=== PATIENT | male | born 1965 | race Caucasian/White ===

== ENCOUNTER 2018-01-26 06:08 | Inpatient (IN) | payer OTHER ==
[2018-01-22 15:39] VITALS: BMI 26.3
[2018-01-26] MEDS ORDERED: ACETAMINOPHEN INJECTION 100 ML IVPB ONE (06:57)
[2018-01-26] MEDS ORDERED: LIDOCAINE HCL/PF 2% SDV 5ML VIAL ONE (07:00)
[2018-01-26] MEDS ORDERED: VANCOMYCIN 1,000 MG VIAL (RESTRICTED TO ID ONLY) ONE (07:00)
[2018-01-26] MEDS ORDERED: PROPOFOL 20 ML ONE ×9 (07:00→09:53)
[2018-01-26] MEDS ORDERED: ONDANSETRON 4 MG/2 ML VIAL ONE ×3 (07:00→13:40)
[2018-01-26] MEDS ORDERED: CLINDAMYCIN PHOSPHATE 600 MG/4 ML VIAL ONE (07:00)
[2018-01-26] MEDS ORDERED: fentaNYL CITRATE 250 MCG/5 ML VIAL ONE (07:00)
[2018-01-26] MEDS ORDERED: SUCCINYLCHOLINE CHLORIDE 200 MG/10 ML VIAL ONE (07:01)
[2018-01-26] MEDS ORDERED: MIDAZOLAM HCL 2 MG/2 ML SINGLE DOSE VIAL ONE ×2 (07:01)
[2018-01-26] MEDS ORDERED: SEVOFLURANE 250 ML BTL ONE (07:19)
[2018-01-26] MEDS ORDERED: DESFLURANE GAS 240 ML BOTTLE IH ONE (07:19)
[2018-01-26] MEDS ORDERED: ALBUTEROL SO4 8 GM HFA INHALER IH ONE (07:55)
[2018-01-26] MEDS ORDERED: THROMBIN (BOVINE) 5,000 UNIT VIAL TP ONE ×2 (08:15→08:50)
[2018-01-26] MEDS ORDERED: HEPARIN NA (PORCINE) 5,000 UNITS/ML 1ML VIAL ONE (08:35)
[2018-01-26] MEDS ORDERED: CLINDAMYCIN 900 MG PREMIX BAG IVPB ONE (08:57)
[2018-01-26] MEDS ORDERED: VANCOMYCIN 1,000 MG VIAL (RESTRICTED TO ID ONLY) IVPB ONE (09:04)
[2018-01-26] MEDS ORDERED: oxyCODONE HCL 5 MG TABLET PO PRN ×3 (12:01→19:42)
[2018-01-26] MEDS ORDERED: ONDANSETRON 4 MG/2 ML VIAL IVPUSH PRN ×2 (12:01→12:15)
[2018-01-26] MEDS ORDERED: traMADol HCL 50 MG TABLET PO PRN (12:01)
--- NOTE | 2018-01-26 12:11 | PN ---
Progress Note (short form) - Note Progress Note: 52M s/p C3-C4, C4-C5 discectomies; C4 corpectomies; C3, C5 partial corpectomies ; C3-C5 anterior cervical decompression anterior column cage reconstruction with instrumented fusion POD #0. -Admit to ICU x 24 hrs. for airway observation; OK to downgrade to floor or discharge home 01/26/2018 if airway stable and discharge criteria met. -Maintain head of bed 60 degrees. -Pain medication: oral only; No NSAID's. -DVT PPx: -Mechanical only: JEROME's, SCD's. -Post-op Ancef x 2 doses. -f/u AM labs. -Incentive spirometry. -PT/OT/Rehab, OOB. -WBAT B/L LE; PWB B/L UE nothing heavier than the weight of his cell phone. -d/c Singh catheter at midnight; f/u TOV. -Keep dressing clean & dry. -No heavy lifting, bending or twisting. -Advance diet as tolerated. -B/L UE & LE NV checks. -Care per ICU & primary medical hospitalist teams. -Discharge planning: f/u [facility] [place] office Friday02/06/2018; call for appointment; . Hammad Joshua MD (Orthopaedic Surgery).
[2018-01-26] MEDS ORDERED: ALBUTEROL SO4 8 GM HFA INHALER IH PRN (12:12)
[2018-01-26] MEDS ORDERED: ALBUTEROL SO4 0.083% IH SOL 2.5 MG/3 ML VIAL.NEB. NEB PRN (12:12)
[2018-01-26] MEDS ORDERED: ceFAZolin 2 GRAM PREMIX BAG IVPB SCH (12:15)
[2018-01-26] MEDS ORDERED: PROMETHAZINE HCL 25 MG/1 ML VIAL IVPUSH PRN (12:15)
--- NOTE | 2018-01-26 12:17 | OP ---
Operative Note - Note: Operative Date: 01/26/18 Pre-Operative Diagnosis: Cervical spinal stenosis. Cervical myelopathy Operation: 1. C3-C4, C4-C5 discectomies. 2. C4 corpectomies. 3. C3, C5 partial corpectomies. 4. C3-C5 anterior column cage reconstruction. 5. C3-C5 anterior instrumented fusion. 6. Bone autograft. 7. Bone allograft Post-Operative Diagnosis: Same as Pre-op Surgeon: Familia Joshua Investigator Narcotics: Hammad Joshua Anesthesiologist/MEDICARE COMPLIANCE AUDITOR: Eliazar Burroughs Anesthesia: General Specimens Removed: C3-C4, C4-C5 discs Estimated Blood Loss (mls): 50 Fluid Volume Replaced (mls): 2,400 Operative Report Dictated: Yes
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
[2018-01-26] MEDS: traMADol HCL 50 MG TABLET PO PRN ×2 (16:26→22:23)
[2018-01-26] MEDS: CLINDAMYCIN 600MG PREMIX IVPB 600 MG/50 ML BAG IVPB SCH ×2 (16:27→21:50)
[2018-01-26] MEDS: LACTATED RINGERS SOLUTION 1,000 ML IV SCH (16:35)
[2018-01-26] MEDS ORDERED: METOPROLOL TARTRATE 5 MG/5 ML VIAL IVPUSH ONE (18:17)
[2018-01-26] MEDS ORDERED: METOPROLOL TARTRATE 5 MG/5 ML VIAL ONE (18:32)
[2018-01-26] MEDS: ACETAMINOPHEN 325 MG TABLET (FP) PO SCH ×2 (18:35→21:45)
--- NOTE | 2018-01-26 18:50 | PN ---
Physical Exam: SUBJECTIVE: Patient seen and examined at bedside in the ICU No acute events POD #0 s/p 1. C3-C4, C4-C5 discectomies. 2. C4 corpectomies. 3. C3, C5 partial corpectomies. 4. C3-C5 anterior column cage reconstruction. 5. C3-C5 anterior instrumented fusion. 6. Bone autograft. 7. Bone allograft minimal pain at incisiojn site no voice changes OBJECTIVE: Vital Signs Period Temp Pulse Resp BP Sys/Nettles Pulse Ox Last 24 Hr 97.8 F-99.2 F 75-97 14-18 121-160/73-108 96-100 GENERAL: The patient is awake, alert, and fully oriented, in no acute distress. HEAD: Normal with no signs of trauma. EYES: PERRL, extraocular movements intact, sclera anicteric, conjunctiva clear. No ptosis. ENT: moist mucous membranes. NECK: Trachea midline, full range of motion, supple. incision C/D/I. no hoarseness. LUNGS: Breath sounds equal, clear to auscultation bilaterally, no wheezes, no crackles, no accessory muscle use. HEART: Regular rate and rhythm, S1, S2 without murmur, rub or gallop. ABDOMEN: Soft, nontender, nondistended, normoactive bowel sounds, no guarding, no rebound, no hepatosplenomegaly, no masses. EXTREMITIES: warm, well-perfused, no edema. NEUROLOGICAL: Cranial nerves II through XII grossly intact. sensation intact in all extremities. global muscle strength 5/5 PSYCH: Normal mood, normal affect. SKIN: Warm, dry, normal turgor, no rashes or lesions noted Laboratory Results - last 24 hr 01/26/18 01/26/18 06:34 07:38 Blood Type A POSITIVE A POSITIVE Antibody Screen Negative Active Medications Generic Name Dose Route Start Last Admin Trade Name Freq PRN Reason Stop Dose Admin Acetaminophen 650 mg 01/26/18 12:15 01/26/18 18:35 Tylenol - PO 650 mg Q6HPO KEN Administration Albuterol Sulfate 1 amp 01/26/18 12:12 Ventolin 0.083% Nebulizer Soln - NEB Q8H PRN ASTHMA Albuterol Sulfate 0 puff 01/26/18 12:12 Ventolin Hfa Inhaler - IH Q4H PRN ASTHMA Budesonide/Formoterol Fumarate 2 puff 01/26/18 22:00 Symbicort 80/4.5mcg - IH BID KEN Chlorhexidine Gluconate 1 applic 01/26/18 22:00 Hibiclens For Decolonization - TP HS KEN Clonazepam 0.5 mg 01/26/18 22:00 Klonopin - PO HS PRN ANXIETY Fluticasone Propionate 1 spray 01/27/18 10:00 Flonase - NS DAILY [facility] Hydrochlorothiazide 12.5 mg 01/26/18 22:00 Hctz - PO BID KEN Lactated Ringer's 1,000 mls @ 100 mls/hr 01/26/18 13:45 01/26/18 16:35 Lactated Ringers Solution IV 100 mls/hr ASDIR KEN Administration Clindamycin Phosphate 600 mg in 50 mls @ 50 mls/hr 01/26/18 15:00 01/26/18 16 :27 Cleocin 600 Mg Premix Ivpb - IVPB 01/27/18 03:59 50 mls/hr Q6H-IV KEN Administration Montelukast Sodium 5 mg 01/27/18 10:00 Singulair - PO DAILY [facility] Mupirocin 1 applic 01/26/18 22:00 Bactroban Ointment (For Decolonization) - NS 01/31/18 21:59 BID [facility] Ondansetron HCl 4 mg 01/26/18 12:01 01/26/18 13:45 Zofran Injection IVPUSH 4 mg Q6H PRN Administration NAUSEA AND/OR VOMITING Ondansetron HCl 4 mg 01/26/18 12:15 Zofran Injection IVPUSH 01/27/18 12:14 Q6H PRN NAUSEA AND/OR VOMITING Pantoprazole Sodium 40 mg 01/27/18 10:00 Protonix - PO DAILY [facility] Promethazine HCl 12.5 mg 01/26/18 12:15 Phenergan Injection - IVPUSH 01/27/18 12:14 Q6H PRN NAUSEA-FOR RESCUE AFTER 15 MIN Tramadol HCl 50 mg 01/26/18 12:01 Ultram - PO Q6H PRN PAIN LEVEL 1-5 Tramadol HCl 100 mg 01/26/18 16:06 01/26/18 16:26 Ultram - PO 100 mg Q6H PRN Administration PAIN LEVEL 6-10 Valsartan 160 mg 01/26/18 22:00 Diovan - PO BID KEN ASSESSMENT/PLAN: 52m pmh of HTN HLD Asthma anxiety psoriatic arthtitis, and cervical spinal stenosis/cervical myelopathy, presents to the ICU POD #0 s/p 1. C3-C4, C4-C5 discectomies. 2. C4 corpectomies. 3. C3, C5 partial corpectomies. 4. C3-C5 anterior column cage reconstruction. 5. C3-C5 anterior instrumented fusion. 6. Bone autograft. 7. Bone allograft Cervical stenosis/Cervical myelopathy POD #0 s/p1. C3-C4, C4-C5 discectomies. 2. C4 corpectomies. 3. C3, C5 partial corpectomies. 4. C3-C5 anterior column cage reconstruction. 5. C3-C5 anterior instrumented fusion. 6. Bone autograft. 7. Bone allograft Pain control ICU care PT/OT monitor neck for hematoma and voice changes-instructions ordered in [employer] periop ABx per surgery team HTN: uncontrolled at this time BP 150/103 Given 5mg IV lopressor by ICU team Due for his meds tonight continue valsartan 160/HCTZ 12.5 he will be changed by his doctor to new BP med but did not start it yet per PT he doesn't know which med-changed because of valsartan recall Can give a dose of norvasc 5mg if hypertensive between now and 10pm when meds are due Asthma: Not currently active bronchodilators PRN O2 PRN Symbicort Congulair Anxiety: Klonopin 0.5mg HS PRN Anxiety HLD: Continue Statin GERD: Protonix Psoratic arthritis FEN: LR @ 100ml/hr get BNP in AM CLD PPx: SCDs PPI PT consult Case discussed with Dr. Suh Visit type - Emergency Visit Emergency Visit: Yes ED Registration Date: 01/26/18 Care time: The patient presented to the Emergency Department on the above date and was hospitalized for further evaluation of their emergent condition. - New Patient This patient is new to me today: Yes Date on this admission: 01/26/18 - Critical Care Critical Care patient: Yes Total Critical Care Time (in minutes): 45 Critical Care Statement: The care of this patient involved high complexity decision making to prevent further life threatening deterioration of the patient 's condition and/or to evaluate & treat vital organ system(s) failure or risk of failure.
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
[2018-01-26] MEDS: MUPIROCIN 2% TOPICAL OINTMENT FOR DECOLONIZATION NS SCH (21:50)
[2018-01-26] MEDS: HYDROCHLOROTHIAZIDE 12.5 MG CAPSULE (FP) PO SCH (21:51)
[2018-01-26] MEDS: VALSARTAN 160 MG TABLET (UD) PO SCH (21:51)
[2018-01-26] MEDS: BUDESONIDE/FORMETEROL FUMARATE 80/4.5 mcg INHALER IH SCH (21:59)
[2018-01-26] MEDS ORDERED: PATIENT'S OWN MEDICATION (NON-FORMULARY) (Valsartan/Hydrochlorothiazide [Valsartan-Hctz 16 PO SCH (22:00)
[2018-01-26] MEDS ORDERED: CHLORHEXIDINE GLUCONATE 4% CLEANSER FOR DECOLONIZATION TP SCH (22:00)
[2018-01-26] MEDS ORDERED: clonazePAM 0.5 MG TABLET PO PRN (22:00)
[2018-01-26] MEDS ORDERED: PATIENT'S OWN MEDICATION (NON-FORMULARY) (Simvastatin 10 MG) PO SCH (22:00)
[2018-01-26] MEDS ORDERED: ATORVASTATIN CA 10 MG TABLET (FP) PO SCH (22:00)
[2018-01-27] MEDS: ACETAMINOPHEN 325 MG TABLET (FP) PO SCH ×4 (00:12→19:52)
[2018-01-27] MEDS: diphenhydrAMINE HCL 25 MG CAPSULE (FP) PO PRN ×3 (00:13→14:10)
[2018-01-27] MEDS ORDERED: BENZOCAINE/MENTH/CETYLPYRD CL 1 EACH LOZENGE MM PRN ×2 (00:21→13:31)
[2018-01-27] MEDS: CLINDAMYCIN 600MG PREMIX IVPB 600 MG/50 ML BAG IVPB SCH (02:10)
[2018-01-27 06:18] LABS: HEMATOCRIT 31.5 % (35.4-49); HEMOGLOBIN 10.9 GM/dL (11.7-16.9); MCH 34.6 pg (25.7-33.7); MCHC 34.5 g/dl (32.0-35.9); MEAN CELL VOLUME 100.4 fl (80-96); MEAN PLT VOLUME 8.7 fl (7.5-11.1); PLATELET COUNT 158 K/MM3 (134-434); RBC 3.13 M/mm3 (4.00-5.60); RDW 12.6 % (11.9-15.9); WHITE BLOOD COUNT 7.5 K/mm3 (4.0-10.0)
[2018-01-27 06:34] LABS: ANION GAP 6 MMOL/L (8-16); BLOOD UREA NITROGEN 21 mg/dL (7-18); CHLORIDE 102 mmol/L (98-107); CO2 28 mmol/L (21-32); CREATININE 1.2 mg/dL (0.55-1.3); GLUCOSE,RANDOM 86 mg/dL (74-106); MAGNESIUM 1.6 mg/dL (1.8-2.4); PHOSPHOROUS 4.1 mg/dL (2.5-4.9); POTASSIUM 4.1 mmol/L (3.5-5.1); SODIUM 136 mmol/L (136-145)
[2018-01-27] MEDS ORDERED: MAGNESIUM SULF 50% (8.12 MEQ/2 ML-1 GM VIAL) IVPB ONE (07:35)
[2018-01-27] MEDS ORDERED: oxyCODONE HCL 5 MG TABLET PO PRN ×2 (07:39→13:31)
[2018-01-27] MEDS ORDERED: traMADol HCL 50 MG TABLET PO PRN (07:39)
--- NOTE | 2018-01-27 09:20 | OP ---
DATE OF OPERATION: 01/26/2018 SURGEON: Familia Joshua MD FRONT DESK AUXILIARY: Hammad Joshua MD PREOPERATIVE DIAGNOSIS: 1. 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 2. Collapse of C4 with associated kyphosis. POSTOPERATIVE DIAGNOSIS: 1. 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 2. Collapse of C4 with associated kyphosis. OPERATION PERFORMED: 1. Corpectomy C4. 2. Partial lobectomy C3 and C5. 3. Discectomy C3-C4 and C4-C5. 4. Insertion of cage C3 to C7 (Cushing Precision Spine). 5. Anterior plating. 6. Use of biplanar fluoroscopy and intraoperative neuromonitoring. 7. Use of autologous bone graft harvested from the vertebral body of C4. ANESTHESIA: General. ANTIBIOTICS GIVEN: Vancomycin 1 g, clindamycin 900 mg, Decadron 10 mg given as well. Neuromonitoring applied. OPERATION IN DETAIL: Patient was correctly identified, brought into the operating room. Cervical spine was prepped and window draped with Betadine scrub solution , wiped with alcohol, DuraPrep applied. Time-out was called. Imaging was available for intraoperative evaluation. Neuromonitoring was utilized prior to positioning of the head and neck as baseline studies were performed. Then, placing the bolsters behind the scapula, extending the neck, there was no change in neuromonitoring numbers. An oblique incision was made just above the cricothyroid interval. The dissection was taken through skin and subcutaneous tissues to the the platysma. Two large components of the anterior jugular veins were ligated using 2-0 Vicryl. The plane between the viscera and vessels were entered. This proved to be slightly difficult. The plane enabled with digital palpation easy access to the anterior vertebral bodies. Retractors were placed, and a marker pen inserted into the C4 -C5 disc. This was really noted on the fluoroscopic x-ray. Once we were sure of our levels, the longus colli using unipolar Bovie was gently lifted off the bone from C3 to C5 by lifting right inside the teeth, the medial and lateral retractors were placed in the longus colli keeping the retractors out of harms way. The discs and vertebral bodies were clearly seen visually under light microscope. [place] pins were placed into C3 and into C5. X-rays were taken, which showed excellent seating of the positioning of the [place] pins. Once this had been performed, light microscope was introduced using a Matchstick Midas Jeremy bur. The lateral columns, the gutters were cut into the vertebral bodies almost down to the posterior end-plate, and then, the central portion of the vertebral bodies were harvested. In harvesting this with the [place] rongeur, it was clearly apparent that the bone was diseased with big, empty holes in the bone, and no true tissue noted, an unusual finding which was appreciated preoperatively on the MRI. Hence, the decision to go ahead with the corpectomy, which was the right decision. The entire vertebral body was resected. We used No. 1 and 2 Kerrisons to clear away the posterior bone and longitudinal ligament. The theca was exposed completely. This was a wide decompression appropriately. The inferior end-plates of C3 and the posterior end-plates of C5 were properly prepared. These were cut to be parallel to each other down to healthy bleeding bone. A Cushing Cage measuring size 24 mm was then inserted. This was premeasured with a caliper and slight distraction had been performed. The cage filled with autologous bone as well as bone marrow, bone putty BMP type material enabled seating of the cage, and then, removing the distraction device, the ligamentous axis collapsed the 2 bony ends seen at the inferior end-plate of C3 and the superior end-plate of C5 to be compressed appropriately. A size 29-mm Simplicity Plate was applied, four 12-mm screws, these were self-tapping screws, inserted in the bone beds, solid fixation achieved. Verification of the plate, cage, and screws from AP and lateral fluoroscopic x- ray revealed excellent positioning. Locking device was then applied. Overall comment after thorough lavage of the tissues with saline, this procedure went well with complete hemostasis achieved on the table. Closure, platysma 2-0 Vicryl, subcutaneous 2-0 Vicryl, skin 3-0 Monocryl, Steri-Strips. No drainage was noted. MD JENA Francois/[id number] MTDD
[2018-01-27] MEDS: VALSARTAN 160 MG TABLET (UD) PO SCH ×2 (09:47→22:31)
[2018-01-27] MEDS: BUDESONIDE/FORMETEROL FUMARATE 80/4.5 mcg INHALER IH SCH ×2 (09:48→22:32)
[2018-01-27] MEDS: HYDROCHLOROTHIAZIDE 12.5 MG CAPSULE (FP) PO SCH ×2 (09:48→22:31)
[2018-01-27] MEDS: MUPIROCIN 2% TOPICAL OINTMENT FOR DECOLONIZATION NS SCH (09:50)
[2018-01-27] MEDS ORDERED: FLUTICASONE PROP 0.05% 16 GM NASAL SPRAY NS SCH (10:00)
[2018-01-27] MEDS ORDERED: PANTOPRAZOLE 40 MG TABLET (FP) PO SCH (10:00)
[2018-01-27] MEDS ORDERED: MONTELUKAST NA 5 MG TAB.CHEW PO SCH (10:00)
--- NOTE | 2018-01-27 10:50 | PN ---
Progress Note, Physician Chief Complaint: s/p ACDF under general anesthesia History of Present Illness: post op day one - Current Medication List Current Medications: Active Medications Acetaminophen (Tylenol -) 650 mg PO Q6HPO [facility] Last Admin: 01/27/18 06:34 Dose: 650 mg Albuterol Sulfate (Ventolin 0.083% Nebulizer Soln -) 1 amp NEB Q8H PRN PRN Reason: ASTHMA Albuterol Sulfate (Ventolin Hfa Inhaler -) 2 puff IH Q4H PRN PRN Reason: ASTHMA Atorvastatin Calcium (Lipitor -) 10 mg PO HS [facility] Last Admin: 01/26/18 21:51 Dose: 10 mg Benzocaine/Menthol (Cepacol Lozenge -) 1 each MM PRN PRN PRN Reason: SORE THROAT Last Admin: 01/27/18 06:34 Dose: 1 each Budesonide/Formoterol Fumarate (Symbicort 80/4.5mcg -) 2 puff IH BID [facility] Last Admin: 01/27/18 09:48 Dose: 2 puff Chlorhexidine Gluconate (Hibiclens For Decolonization -) 1 applic TP HS [facility] Last Admin: 01/26/18 21:51 Dose: 1 applic Clonazepam (Klonopin -) 0.5 mg PO HS PRN PRN Reason: ANXIETY Diphenhydramine HCl (Benadryl -) 50 mg PO Q6H PRN PRN Reason: PAIN Last Admin: 01/27/18 08:25 Dose: 50 mg Fluticasone Propionate (Flonase -) 1 spray NS DAILY [facility] Last Admin: 01/27/18 09:51 Dose: 1 spray Hydrochlorothiazide (Hctz -) 12.5 mg PO BID [facility] Last Admin: 01/27/18 09:48 Dose: 12.5 mg Lactated Ringer's (Lactated Ringers Solution) 1,000 mls @ 100 mls/hr IV ASDIR [facility] Last Admin: 01/26/18 16:35 Dose: 100 mls/hr Montelukast Sodium (Singulair -) 5 mg PO DAILY [facility] Last Admin: 01/27/18 09:48 Dose: 5 mg Mupirocin (Bactroban Ointment (For Decolonization) -) 1 applic NS BID [facility] Stop: 01/31/18 21:59 Last Admin: 01/27/18 09:50 Dose: 1 applic Ondansetron HCl (Zofran Injection) 4 mg IVPUSH Q6H PRN PRN Reason: NAUSEA AND/OR VOMITING Last Admin: 01/26/18 13:45 Dose: 4 mg Ondansetron HCl (Zofran Injection) 4 mg IVPUSH Q6H PRN PRN Reason: NAUSEA AND/OR VOMITING Stop: 01/27/18 12:14 Oxycodone HCl (Roxicodone -) 10 mg PO Q6H PRN PRN Reason: PAIN LEVEL 7 - 10 Last Admin: 01/27/18 08:24 Dose: 10 mg Pantoprazole Sodium (Protonix -) 40 mg PO DAILY [facility] Last Admin: 01/27/18 09:48 Dose: 40 mg Promethazine HCl (Phenergan Injection -) 12.5 mg IVPUSH Q6H PRN PRN Reason: NAUSEA-FOR RESCUE AFTER 15 MIN Stop: 01/27/18 12:14 Tramadol HCl (Ultram -) 50 mg PO Q6H PRN PRN Reason: PAIN LEVEL 1-5 Tramadol HCl (Ultram -) 100 mg PO Q6H PRN PRN Reason: PAIN LEVEL 4 - 6 Valsartan (Diovan -) 160 mg PO BID [facility] Last Admin: 01/27/18 09:47 Dose: 160 mg - Objective Vital Signs: Vital Signs Temperature 98.3 F 01/27/18 10:03 Pulse Rate 103 H 01/27/18 10:03 Respiratory Rate 18 01/27/18 10:03 Blood Pressure 148/97 01/27/18 10:03 O2 Sat by Pulse Oximetry (%) 100 01/26/18 23:03 Constitutional: Yes: Well Nourished Cardiovascular: Yes: WNL Respiratory: Yes: WNL Gastrointestinal: Yes: WNL Labs: CBC, BMP 01/27/18 05:30 01/27/18 05:30 Assessment/Plan no adverse effect from anesthesia, pain controlled, dept of anesthesia will sign off care at this time
[2018-01-27] MEDS: LACTATED RINGERS SOLUTION 1,000 ML IV SCH (12:32)
--- NOTE | 2018-01-27 12:42 | PN ---
Teaching Attending Note Name of Resident: Yara Mrogan ATTENDING PHYSICIAN STATEMENT I saw and evaluated the patient. I reviewed the resident's note and discussed the case with the resident. I agree with the resident's findings and plan as documented. SUBJECTIVE: Patient seen and examined in the ICU. Awake and alert. Reports post-op related discomfort. No CP or SOB. No acute events overnight. Intake & Output 01/24/18 01/25/18 01/26/18 01/27/18 23:59 23:59 23:59 23:59 Intake Total 3370 2150 Output Total 500 1200 Balance 2870 950 Last Vital Signs Temp Pulse Resp BP Pulse Ox 98.5 F 103 H 18 148/97 100 01/27/18 11:41 01/27/18 10:03 01/27/18 10:03 01/27/18 10:03 01/26/18 23:03 Active Medications Acetaminophen (Tylenol -) 650 mg PO Q6HPO [facility] Last Admin: 01/27/18 12:31 Dose: 650 mg Albuterol Sulfate (Ventolin 0.083% Nebulizer Soln -) 1 amp NEB Q8H PRN PRN Reason: ASTHMA Albuterol Sulfate (Ventolin Hfa Inhaler -) 2 puff IH Q4H PRN PRN Reason: ASTHMA Atorvastatin Calcium (Lipitor -) 10 mg PO HS [facility] Last Admin: 01/26/18 21:51 Dose: 10 mg Benzocaine/Menthol (Cepacol Lozenge -) 1 each MM PRN PRN PRN Reason: SORE THROAT Last Admin: 01/27/18 06:34 Dose: 1 each Budesonide/Formoterol Fumarate (Symbicort 80/4.5mcg -) 2 puff IH BID [facility] Last Admin: 01/27/18 09:48 Dose: 2 puff Chlorhexidine Gluconate (Hibiclens For Decolonization -) 1 applic TP HS [facility] Last Admin: 01/26/18 21:51 Dose: 1 applic Clonazepam (Klonopin -) 0.5 mg PO HS PRN PRN Reason: ANXIETY Diphenhydramine HCl (Benadryl -) 50 mg PO Q6H PRN PRN Reason: PAIN Last Admin: 01/27/18 08:25 Dose: 50 mg Fluticasone Propionate (Flonase -) 1 spray NS DAILY [facility] Last Admin: 10/09/18 09:51 Dose: 1 spray Hydrochlorothiazide (Hctz -) 12.5 mg PO BID [facility] Last Admin: 01/27/18 09:48 Dose: 12.5 mg Lactated Ringer's (Lactated Ringers Solution) 1,000 mls @ 100 mls/hr IV ASDIR [facility] Last Admin: 01/27/18 12:32 Dose: 100 mls/hr Montelukast Sodium (Singulair -) 5 mg PO DAILY [facility] Last Admin: 01/27/18 09:48 Dose: 5 mg Mupirocin (Bactroban Ointment (For Decolonization) -) 1 applic NS BID [facility] Stop: 01/31/18 21:59 Last Admin: 01/27/18 09:50 Dose: 1 applic Ondansetron HCl (Zofran Injection) 4 mg IVPUSH Q6H PRN PRN Reason: NAUSEA AND/OR VOMITING Last Admin: 01/26/18 13:45 Dose: 4 mg Oxycodone HCl (Roxicodone -) 10 mg PO Q6H PRN PRN Reason: PAIN LEVEL 7 - 10 Last Admin: 01/27/18 08:24 Dose: 10 mg Pantoprazole Sodium (Protonix -) 40 mg PO DAILY [facility] Last Admin: 01/27/18 09:48 Dose: 40 mg Tramadol HCl (Ultram -) 50 mg PO Q6H PRN PRN Reason: PAIN LEVEL 1-5 Tramadol HCl (Ultram -) 100 mg PO Q6H PRN PRN Reason: PAIN LEVEL 4 - 6 Valsartan (Diovan -) 160 mg PO BID [facility] Last Admin: 01/27/18 09:47 Dose: 160 mg General: Awake and alert, NAD HEENT: Clean dressing on anterior neck. Neck soft to palpation. Cards: RRR, no murmur appreciated Pulm: Comfortable on room air, clear to auscultation bilaterally Abd: Soft, nontender, nondistended Ext: Atraumatic. No LE edema. ROM intact. Strength 5/5 and equal bilaterally Neuro: A&Ox3, non-focal Psych: Mood appropriate to situation Laboratory Results - last 24 hr 01/27/18 01/27/18 05:30 05:30 WBC 7.5 RBC 3.13 L Hgb 10.9 L Hct 31.5 L MCV 100.4 H MCH 34.6 H MCHC 34.5 RDW 12.6 Plt Count 158 MPV 8.7 Sodium 136 Potassium 4.1 Chloride 102 Carbon Dioxide 28 Anion Gap 6 L BUN 21 H Creatinine 1.2 Creat Clearance w eGFR > 60 Random Glucose 86 Calcium 8.0 L Phosphorus 4.1 Magnesium 1.6 L ASSESSMENT/PLAN: POD #1: C3-C4, C4-C5 discectomies, C4 corpectomies, C3, C5 partial corpectomies , C3-C5 anterior column cage reconstruction, C3-C5 anterior instrumented fusion , bone autograft Asthma: stable GERD Psoriatic Arthritis OOB to chair / ambulate Incentive Spirometry PO as tolerated Neuro checks VTE prophylaxis Dr Barfield
[2018-01-27] MEDS ORDERED: clonazePAM 0.5 MG TABLET PO PRN (13:31)
[2018-01-27] MEDS ORDERED: ONDANSETRON 4 MG/2 ML VIAL IVPUSH PRN (13:31)
[2018-01-27] MEDS ORDERED: ALBUTEROL SO4 8 GM HFA INHALER IH PRN (13:31)
--- NOTE | 2018-01-27 17:06 | PN ---
Physical Exam: SUBJECTIVE: Patient seen and examined. He complains of neck discomfort and hoarseness. He denies SOB, stridor, difficulty swallowing. OBJECTIVE: Vital Signs Period Temp Pulse Resp BP Sys/Nettles Pulse Ox Last 24 Hr 98.1 F-99.4 F 73-103 13-21 127-161/89-103 100 GENERAL: The patient is awake, alert, and fully oriented, in no acute distress. Neck: Clean, dry dressing on anterior neck. LUNGS: Breath sounds equal, clear to auscultation bilaterally, no wheezes, no crackles, no accessory muscle use. HEART: Regular rate and rhythm, S1, S2 without murmur, rub or gallop. ABDOMEN: Soft, nontender, nondistended, normoactive bowel sounds, no guarding, no rebound, no hepatosplenomegaly, no masses. EXTREMITIES: 2+ pulses, warm, well-perfused, no edema. Laboratory Results - last 24 hr 01/27/18 01/27/18 05:30 05:30 WBC 7.5 RBC 3.13 L Hgb 10.9 L Hct 31.5 L MCV 100.4 H MCH 34.6 H MCHC 34.5 RDW 12.6 Plt Count 158 MPV 8.7 Sodium 136 Potassium 4.1 Chloride 102 Carbon Dioxide 28 Anion Gap 6 L BUN 21 H Creatinine 1.2 Creat Clearance w eGFR > 60 Random Glucose 86 Calcium 8.0 L Phosphorus 4.1 Magnesium 1.6 L Active Medications Generic Name Dose Route Start Last Admin Trade Name Freq PRN Reason Stop Dose Admin Acetaminophen 650 mg 01/27/18 18:00 Tylenol - PO Q6HPO KEN Albuterol Sulfate 1 amp 01/27/18 13:31 Ventolin 0.083% Nebulizer Soln - NEB Q8H PRN ASTHMA Albuterol Sulfate 2 puff 01/27/18 13:31 Ventolin Hfa Inhaler - IH Q4H PRN ASTHMA Atorvastatin Calcium 10 mg 01/27/18 22:00 Lipitor - PO HS KEN Benzocaine/Menthol 1 each 01/27/18 13:31 Cepacol Lozenge - MM PRN PRN SORE THROAT Budesonide/Formoterol Fumarate 2 puff 01/27/18 22:00 Symbicort 80/4.5mcg - IH BID [facility] Clonazepam 0.5 mg 01/27/18 13:31 Klonopin - PO HS PRN ANXIETY Diphenhydramine HCl 50 mg 01/27/18 13:31 01/27/18 14:10 Benadryl - PO 50 mg Q6H PRN Administration FOR ITCHING Fluticasone Propionate 1 spray 01/28/18 10:00 Flonase - NS DAILY [facility] Hydrochlorothiazide 12.5 mg 01/27/18 22:00 Hctz - PO BID [facility] Montelukast Sodium 5 mg 01/28/18 10:00 Singulair - PO DAILY [facility] Ondansetron HCl 4 mg 01/27/18 13:31 Zofran Injection IVPUSH Q6H PRN NAUSEA AND/OR VOMITING Oxycodone HCl 10 mg 01/27/18 13:31 01/27/18 14:08 Roxicodone - PO 10 mg Q6H PRN Administration PAIN LEVEL 7 - 10 Pantoprazole Sodium 40 mg 01/28/18 10:00 Protonix - PO DAILY [facility] Tramadol HCl 50 mg 01/27/18 13:31 Ultram - PO Q6H PRN PAIN LEVEL 1-3 Tramadol HCl 100 mg 01/27/18 13:31 Ultram - PO Q6H PRN PAIN LEVEL 4 - 6 Valsartan 160 mg 01/27/18 22:00 Diovan - PO BID [facility] ASSESSMENT/PLAN: This is a 52 year old man with a history of HTN, hyperlipidemia, asthma, psoriatic arthritis, , anxiety, cervical stenosis with myelopathy who was admitted for C-spine surgery. 1. Cervical stenosis with myelopathy - s/p C3-C4, C4-C5 discectomies; C4 corpectomies; C3, C5 partial corpectomies ; C3-C5 anterior cage reconstruction; C3-C5 anterior instrumented fusion; bone autograft; bone allograft 01/26 - Pain control - Physical therapy 2. HTN - Continue Diovan, HCTZ 3. Hyperlipidemia - Continue Lipitor 4. Asthma - Stable - Continue Symbicort, Singulair 5. Psoriatic arthritis 6. Anxiety - Continue Klonopin
--- NOTE | 2018-01-27 17:54 | PN ---
Physical Exam: SUBJECTIVE: - POD #1 s/p cervical discectomy, corpectomies, anterior fusion - Overnight, rice removed and voiding w/o difficulty - Reports continued sore throat, some pain. No difficulty swallowing, breathing , or voice changes OBJECTIVE: Vital Signs Period Temp Pulse Resp BP Sys/Nettles Pulse Ox Last 24 Hr 98.1 F-99.4 F 73-103 13-21 127-161/89-103 100 General: Comfortable, no acute distress HEENT: PERRL, EOMI, MMM, voice normal. Clean dressing on anterior neck. No strikethrough. No erythema, edema, induration surrounding incision - neck soft to palpation. Cards: RRR, no murmur appreciated Pulm: Comfortable on room air, clear to auscultation bilaterally Abd: Soft, nontender, nondistended Ext: Atraumatic. No LE edema. ROM intact. Strength 5/5 and equal bilaterally Vasc: Extremities WWP Neuro: A&Ox3, CN grossly intact, normal speech, motor/sensory grossly intact and symmetric Psych: Mood appropriate to situation Laboratory Results - last 24 hr 01/27/18 01/27/18 05:30 05:30 WBC 7.5 RBC 3.13 L Hgb 10.9 L Hct 31.5 L MCV 100.4 H MCH 34.6 H MCHC 34.5 RDW 12.6 Plt Count 158 MPV 8.7 Sodium 136 Potassium 4.1 Chloride 102 Carbon Dioxide 28 Anion Gap 6 L BUN 21 H Creatinine 1.2 Creat Clearance w eGFR > 60 Random Glucose 86 Calcium 8.0 L Phosphorus 4.1 Magnesium 1.6 L Active Medications Generic Name Dose Route Start Last Admin Trade Name Freq PRN Reason Stop Dose Admin Acetaminophen 650 mg 01/27/18 18:00 Tylenol - PO Q6HPO KEN Albuterol Sulfate 1 amp 01/27/18 13:31 Ventolin 0.083% Nebulizer Soln - NEB Q8H PRN ASTHMA Albuterol Sulfate 2 puff 01/27/18 13:31 Ventolin Hfa Inhaler - IH Q4H PRN ASTHMA Atorvastatin Calcium 10 mg 01/27/18 22:00 Lipitor - PO HS KEN Benzocaine/Menthol 1 each 01/27/18 13:31 Cepacol Lozenge - MM PRN PRN SORE THROAT Budesonide/Formoterol Fumarate 2 puff 10/09/18 22:00 Symbicort 80/4.5mcg - IH BID [facility] Clonazepam 0.5 mg 01/27/18 13:31 Klonopin - PO HS PRN ANXIETY Diphenhydramine HCl 50 mg 01/27/18 13:31 01/27/18 14:10 Benadryl - PO 50 mg Q6H PRN Administration FOR ITCHING Fluticasone Propionate 1 spray 01/28/18 10:00 Flonase - NS DAILY [facility] Hydrochlorothiazide 12.5 mg 01/27/18 22:00 Hctz - PO BID [facility] Montelukast Sodium 5 mg 01/28/18 10:00 Singulair - PO DAILY [facility] Ondansetron HCl 4 mg 01/27/18 13:31 Zofran Injection IVPUSH Q6H PRN NAUSEA AND/OR VOMITING Oxycodone HCl 10 mg 01/27/18 13:31 01/27/18 14:08 Roxicodone - PO 10 mg Q6H PRN Administration PAIN LEVEL 7 - 10 Pantoprazole Sodium 40 mg 01/28/18 10:00 Protonix - PO DAILY [facility] Tramadol HCl 50 mg 01/27/18 13:31 Ultram - PO Q6H PRN PAIN LEVEL 1-3 Tramadol HCl 100 mg 01/27/18 13:31 Ultram - PO Q6H PRN PAIN LEVEL 4 - 6 Valsartan 160 mg 01/27/18 22:00 Diovan - PO BID [facility] ASSESSMENT/PLAN: Shukri Amezcua is a 52yo man with a PMH of asthma, HTN, HLD, psoriatic arthritis, GERD, cervical spinal stenosis and cervical myelopathy who is POD #1 s/p C3-C4, C4-C5 discectomies, C4 corpectomies, C3, C5 partial corpectomies, C3-C5 anterior column cage reconstruction, C3-C5 anterior instrumented fusion, bone autograft and bone allograft. He was admitted to the ICU postoperatively for airway and neurological monitoring and has been recovering well. Neuro: - Q1hr neurovascular checks overnight - HOB to 60 degrees - Benzocaine lozenge for throat pain - Pain control with scheduled tylenol, tramadol - Oxycodone for severe pain - give with benedryl to prevent reported itching - Clonazepam PRN for anxiety CV: - h/o HTN, HLD - Continue hydrochlorothiazide and valsartan Pulm: - h/o asthma - Continue albuterol, advair, singulair - Encourage OOB, IS 10x per hour Heme: - Postoperative anemia with hgb to 10.9 - Daily CBC GI: - Tolerating diet - Pantoprazole daily - PRN zofran, promethazine Renal: - Voiding without issues ID: - Perioperative antibiotics completed Endo: - No issues Musc: - OOB as tolerated - WBAT BUE and BLE. - Lifting restriction no more than a cell phone - No bending, twisting PPx: - No pharmacologic DVT ppx. JEROME hose in place - Pantoprazole FEN: - Regular diet - SLIV - Replete lytes PRN Dispo: - Transfer to floor - August d/c home when ambulating. Already tolerating diet, voiding spontaneously. Seen and discussed with Dr Carolyne Morgan PGY1 Visit type - Emergency Visit Emergency Visit: No - New Patient This patient is new to me today: No - Critical Care Critical Care patient: Yes Total Critical Care Time (in minutes): 45 Critical Care Statement: The care of this patient involved high complexity decision making to prevent further life threatening deterioration of the patient 's condition and/or to evaluate & treat vital organ system(s) failure or risk of failure.
[2018-01-27] MEDS: traMADol HCL 50 MG TABLET PO PRN (20:36)
[2018-01-27] MEDS: ALBUTEROL SO4 0.083% IH SOL 2.5 MG/3 ML VIAL.NEB. NEB PRN (21:21)
[2018-01-27] MEDS: ATORVASTATIN CA 10 MG TABLET (FP) PO SCH (22:32)
[2018-01-28] MEDS: traMADol HCL 50 MG TABLET PO PRN ×3 (01:38→17:52)
[2018-01-28] MEDS: ACETAMINOPHEN 325 MG TABLET (FP) PO SCH ×5 (07:18→20:01)
[2018-01-28] MEDS: ALBUTEROL SO4 0.083% IH SOL 2.5 MG/3 ML VIAL.NEB. NEB PRN (07:32)
[2018-01-28] MEDS ORDERED: PT OWN MED DRAWER 7, Y5N ONE ×3 (10:47→12:59)
[2018-01-28] MEDS: VALSARTAN 160 MG TABLET (UD) PO SCH ×2 (10:51→21:35)
[2018-01-28] MEDS: HYDROCHLOROTHIAZIDE 12.5 MG CAPSULE (FP) PO SCH ×2 (10:51→21:35)
[2018-01-28] MEDS: PANTOPRAZOLE 40 MG TABLET (FP) PO SCH (10:51)
[2018-01-28] MEDS: MONTELUKAST NA 5 MG TAB.CHEW PO SCH (10:55)
[2018-01-28] MEDS: BUDESONIDE/FORMETEROL FUMARATE 80/4.5 mcg INHALER IH SCH ×2 (10:57→21:43)
--- NOTE | 2018-01-28 11:29 | CONSULT ---
Admitting History and Physical - Primary Care Physician PCP: Familia Joshua - Admission History of Present Illness: 52m pmh of HTN HLD Asthma anxiety psoriatic arthtitis, and cervical spinal stenosis/cervical myelopathy, presents to the ICU POD #0 s/p 1. C3-C4, C4-C5 discectomies. 2. C4 corpectomies. 3. C3, C5 partial corpectomies. 4. C3-C5 anterior column cage reconstruction. 5. C3-C5 anterior instrumented fusion. 6. Bone autograft. 7. Bone allograft Selected Entries 01/26/18 01/26/18 01/26/18 06:58 12:01 14:45 Temperature 98.4 F 99.2 F 98.3 F 01/26/18 01/26/18 01/26/18 15:00 18:00 23:58 Temperature 97.8 F 98.5 F 98.4 F 01/27/18 01/27/18 01/27/18 02:16 10:03 11:41 Temperature 98.1 F 98.3 F 98.5 F 01/27/18 01/27/18 01/27/18 14:00 19:30 20:59 Temperature 99.4 F 101.5 F H 101.3 F H 01/28/18 01/28/18 01:39 06:00 Temperature 99.4 F 100.5 F H Laboratory Tests 01/27/18 05:30 WBC 7.5 History Source: Patient Limitations to Obtaining History: No Limitations - Smoking History Smoking history: Former smoker Have you smoked in the past 12 months: Yes If you are a former smoker, when did you quit?: 1 month ago - Alcohol/Substance Use Hx Alcohol Use: No History - Admission Reason For Visit: CERVICAL DISC DISORDER - General Mental Status: Alert and Oriented, Awake and Alert, Able to Follow Commands Attention: Intact Ability to Follow Directions: Excellent Head/Neck Control: Fair (limited head rotation/flexion. Swelling noted.) - Hearing Hearing: Normal Speech Evaluation - Communication Primary Language: CYMRO Communication: Yes: Within Normal Limits - Speech Production Intelligibility: Yes: WNL - Speech Characteristics Voice Loudness: Mildly Soft/Quiet Voice Pitch: Yes: Normal Voice Phonatory-based Quality: Yes: Dysphonia (mild. No vocal wetness.) Speech Pattern: Normal Speech Clarity: < 100% Rate of Speech: Intact - Language/Auditory Comprehension Follows: Yes: 2 Stage Simple Commands - Language/Verbal Expression Able to Respond to Simple Queries: Yes: WNL Able to Communicate Wants and Needs: Yes: WNL Functional Communication Status: Yes: WNL - Swallow Evaluation/Bedside Assessment Current Nutritional Intake: Regular, Thin Liquids Dentition: Yes: Adequate Facial Symmetry at Rest: Symmetrical Facial Movement: Controlled Against Resistance Opening: Normal Against Resistance Closing: Normal Pucker Lips: Normal Smile: Normal Lingual Movement: Normal, Symmetric Lingual Speed of Movement: Normal Lingual Movement Strgth Against Opposition: Normal Lingual Movement Characteristics: Normal Velopharyngeal Movement: Normal Laryngeal Movement: Reduced Excursion, Labored,delay initiation Bolus Size: Small Labial Seal: WFL Chewing: WFL Oral Prep Time: WFL A-P Transit: WFL Pocketing: None Odynophagia: Pharyngeal Coughing/Throat Clear: No Change in Voice: No Recommendations - Speech Evaluation, Impression/Plan Impression: Pt c/o increased pain/pharyngeal Odynophagia. He reports he can not breathe lying flat. He has troble swallowing pills as it gets stuck, goes up and down, unable to pass. He denies coughing while eating. He is febrile/WBC ok. Assessed with sip of water with immediate eye opening, gasp for air without cough. Bedside evaluation is inconclusive. Sensation is likely reduced, which can result in silent aspiration. Laryngeal swallow seems resticted likely due to swelling. Pt denies pulmonary congestion but laryngeal/pharyngeal tightness, difficulty breathing when on back. - Dysphagia Impressions/Plan Swallowing Skills: Impaired Dysphagia Impressions: Risk of Aspiration (r/o stasis?), Ongoing Evaluation *Silent aspiration: cannot be R/O at bedside Recommendations: Modified Barium Swallow (to visualize swallowing function, r/o stasis/aspiration, determine safest, most liberal diet pt can tolerate.), Other (Consider CXR. Steroids if not medically contraindicated.) - Recommendations Diet Consistency: NPO (suggested until mbs performed)
[2018-01-28] MEDS ORDERED: DEXAMETHASONE SOD PHOSPHATE 10 MG/1 ML VIAL IVPUSH ONE (12:45)
[2018-01-28] MEDS: FLUTICASONE PROP 0.05% 16 GM NASAL SPRAY NS SCH (13:01)
--- NOTE | 2018-01-28 15:55 | PN ---
Progress Note (short form) - Note Progress Note: POD#2 Called to see patient because he has had swelling in his neck since yesterday afternoon and some difficulty swallowing. He said that liquids are easier to swallow than thicker substances such as qpplesauce. He does feel SOB when laying flat. Not having difficulty swallowing his saliva. His pain symptoms have improved in his upper extremities. Vital Signs Period Temp Pulse Resp BP Sys/Nettles Pulse Ox Last 24 Hr 98.6 F-101.5 F 90-98 16-20 134-171/87-103 GEN: A&0x3, NAD Neck: No stridor. Incision c/d/i, dressing changed. No drainage noted. Small blisters to the right of the incision approximately 1x2 cm. Some fullness and tenderness to the right anterior neck. No firm masses. CV: RRR Lungs: CTA b/l Neuro: polysom tech strength equal b/l. Extension/flexion to upper ext 5/5 b/l CBC, BMP 01/27/18 05:30 01/27/18 05:30 CXR: atelectasis at left base Microbiology-urine culture/blood cultures pending A/p: 52 yo male s/p C-3/4 and C4/5 disectomies with anterior fusion mild swelling to right anterior neck Speech and swallow consult completed with modified barium swallow study completed. No aspiration seen and recommending puree diet and thin liquids with chin tuck technique. Spoke with Dr. Joshua and will given decadron x1 IV for swelling and dyphasia. Dressing changed today and applied bacitracin to the blistered areas. Continue oob/ambulate/incentive spirometer Fever workup pending with urine/blood cultures. Encourage incentive spirometer.
[2018-01-28] MEDS: BACITRACIN 15 GM TUBE TOPICAL OINTMENT TP SCH ×2 (17:45→21:43)
--- NOTE | 2018-01-28 19:28 | PN ---
Physical Exam: SUBJECTIVE: Patient seen and examined. Throat feels sore. Can swallow water only. Difficulty swallowing pills. OBJECTIVE: Vital Signs Period Temp Pulse Resp BP Sys/Nettles Pulse Ox Last 24 Hr 97.7 F-101.5 F 82-98 18-20 134-171/87-98 96 General/Neuro: A&Ox3, NAD; ambulating, 5/5 motor and 5/5 sensory all extremites , steady gait HEENT: Neck swollen; voice clear, no hoarseness, no drooling; anterior neck surgical dressing c/d/i Lungs: CTA CV: S1, S2, RRR Ext: 2+ pulses, warm, well-perfused Active Medications Generic Name Dose Route Start Last Admin Trade Name Freq PRN Reason Stop Dose Admin Acetaminophen 650 mg 01/27/18 18:00 01/28/18 17:58 Tylenol - PO Not Given Q6HPO KEN Albuterol Sulfate 1 amp 01/27/18 13:31 01/28/18 07:32 Ventolin 0.083% Nebulizer Soln - NEB 1 amp Q8H PRN Administration ASTHMA Albuterol Sulfate 2 puff 01/27/18 13:31 Ventolin Hfa Inhaler - IH Q4H PRN ASTHMA Atorvastatin Calcium 10 mg 01/27/18 22:00 01/27/18 22:32 Lipitor - PO 10 mg HS KEN Administration Bacitracin 1 applic 01/28/18 16:45 01/28/18 17:45 Bacitracin - TP 1 applic BID KEN Administration Benzocaine/Menthol 1 each 01/27/18 13:31 01/28/18 09:19 Cepacol Lozenge - MM 1 each PRN PRN Administration SORE THROAT Budesonide/Formoterol Fumarate 2 puff 01/27/18 22:00 01/28/18 10:57 Symbicort 80/4.5mcg - IH 2 puff BID KEN Administration Clonazepam 0.5 mg 01/27/18 13:31 01/27/18 22:33 Klonopin - PO 0.5 mg HS PRN Administration ANXIETY Diphenhydramine HCl 50 mg 01/27/18 13:31 01/27/18 14:10 Benadryl - PO 50 mg Q6H PRN Administration FOR ITCHING Fluticasone Propionate 1 spray 01/28/18 10:00 01/28/18 13:01 Flonase - NS 1 spray DAILY KEN Administration Hydrochlorothiazide 12.5 mg 01/27/18 22:00 01/28/18 10:51 Hctz - PO 12.5 mg BID KEN Administration Montelukast Sodium 5 mg 01/28/18 10:00 01/28/18 10:55 Singulair - PO 5 mg DAILY KEN Administration Ondansetron HCl 4 mg 01/27/18 13:31 Zofran Injection IVPUSH Q6H PRN NAUSEA AND/OR VOMITING Oxycodone HCl 10 mg 01/27/18 13:31 01/27/18 14:08 Roxicodone - PO 10 mg Q6H PRN Administration PAIN LEVEL 7 - 10 Pantoprazole Sodium 40 mg 01/28/18 10:00 01/28/18 10:51 Protonix - PO 40 mg DAILY KEN Administration Tramadol HCl 50 mg 01/27/18 13:31 01/28/18 01:38 Ultram - PO 50 mg Q6H PRN Administration PAIN LEVEL 1-3 Tramadol HCl 100 mg 01/27/18 13:31 01/28/18 17:52 Ultram - PO 100 mg Q6H PRN Administration PAIN LEVEL 4 - 6 Valsartan 160 mg 01/27/18 22:00 01/28/18 10:51 Diovan - PO 160 mg BID KEN Administration ASSESSMENT/PLAN This is a 52 year old man with a history of HTN, hyperlipidemia, asthma, psoriatic arthritis, , anxiety, cervical stenosis with myelopathy who was admitted for C-spine surgery. 1. Cervical stenosis with myelopathy - s/p C3-C4, C4-C5 discectomies; C4 corpectomies; C3, C5 partial corpectomies ; C3-C5 anterior cage reconstruction; C3-C5 anterior instrumented fusion; bone autograft; bone allograft 01/26 --POD #2 --pain well-managed with PO meds --complaining of difficulty swallowing; swallow evaluation ordered, NPO in meantime 2. HTN - Continue Diovan, HCTZ 3. Hyperlipidemia - Continue Lipitor 4. Asthma - Stable - Continue Symbicort, Singulair 5. Psoriatic arthritis 6. Anxiety - Continue Klonopin Visit type - Emergency Visit Emergency Visit: Yes ED Registration Date: 01/26/18 Care time: The patient presented to the Emergency Department on the above date and was hospitalized for further evaluation of their emergent condition. - New Patient This patient is new to me today: Yes Date on this admission: 02/05/18 - Critical Care Critical Care patient: No
[2018-01-28] MEDS: ATORVASTATIN CA 10 MG TABLET (FP) PO SCH (21:35)
[2018-01-28] MEDS: diphenhydrAMINE HCL 25 MG CAPSULE (FP) PO PRN (22:50)
[2018-01-29] MEDS: ACETAMINOPHEN 325 MG TABLET (FP) PO SCH ×3 (00:39→13:06)
[2018-01-29] MEDS ORDERED: PT OWN MED DRAWER 7, Y5N ONE (09:35)
[2018-01-29 09:40] VITALS: BP 135/91; PULSE 88; TEMP 98.1
[2018-01-29] MEDS: HYDROCHLOROTHIAZIDE 12.5 MG CAPSULE (FP) PO SCH (09:41)
[2018-01-29] MEDS: VALSARTAN 160 MG TABLET (UD) PO SCH (09:42)
[2018-01-29] MEDS: FLUTICASONE PROP 0.05% 16 GM NASAL SPRAY NS SCH (09:42)
[2018-01-29] MEDS: MONTELUKAST NA 5 MG TAB.CHEW PO SCH (09:42)
[2018-01-29] MEDS: PANTOPRAZOLE 40 MG TABLET (FP) PO SCH (09:42)
[2018-01-29] MEDS: BACITRACIN 15 GM TUBE TOPICAL OINTMENT TP SCH (09:42)
[2018-01-29] MEDS: BUDESONIDE/FORMETEROL FUMARATE 80/4.5 mcg INHALER IH SCH (09:43)
--- NOTE | 2018-01-29 11:40 | PN ---
Physical Exam: SUBJECTIVE: Patient seen and examined. Ambulating around room. Denies cervical pain, states pre-op symtomps of upper extremity parasthesia is gone. Throat is still sore, feels swollen. Able to swallow water, scrambled eggs, and Cream of Wheat. OBJECTIVE: Vital Signs Period Temp Pulse Resp BP Sys/Nettles Pulse Ox Last 24 Hr 97.7 F-99.7 F 82-96 16-20 134-160/91-98 95 General/Neuro: A&Ox3, NAD; ambulating, 5/5 motor and 5/5 sensory all extremites , steady gait HEENT: Neck swollen; voice clear, no hoarseness, no drooling; anterior neck surgical dressing c/d/i Lungs: CTA CV: S1, S2, RRR Ext: 2+ pulses, warm, well-perfused Active Medications Generic Name Dose Route Start Last Admin Trade Name Freq PRN Reason Stop Dose Admin Acetaminophen 650 mg 01/27/18 18:00 01/29/18 05:32 Tylenol - PO 650 mg Q6HPO KEN Administration Albuterol Sulfate 1 amp 01/27/18 13:31 01/28/18 07:32 Ventolin 0.083% Nebulizer Soln - NEB 1 amp Q8H PRN Administration ASTHMA Albuterol Sulfate 2 puff 01/27/18 13:31 Ventolin Hfa Inhaler - IH Q4H PRN ASTHMA Atorvastatin Calcium 10 mg 01/27/18 22:00 01/28/18 21:35 Lipitor - PO 10 mg HS KEN Administration Bacitracin 1 applic 01/28/18 16:45 01/29/18 09:42 Bacitracin - TP 1 applic BID KEN Administration Benzocaine/Menthol 1 each 01/27/18 13:31 01/28/18 09:19 Cepacol Lozenge - MM 1 each PRN PRN Administration SORE THROAT Budesonide/Formoterol Fumarate 2 puff 01/27/18 22:00 01/29/18 09:43 Symbicort 80/4.5mcg - IH 2 puff BID KEN Administration Clonazepam 0.5 mg 01/27/18 13:31 01/27/18 22:33 Klonopin - PO 0.5 mg HS PRN Administration ANXIETY Diphenhydramine HCl 50 mg 01/27/18 13:31 01/28/18 22:50 Benadryl - PO 50 mg Q6H PRN Administration FOR ITCHING Fluticasone Propionate 1 spray 01/28/18 10:00 01/29/18 09:42 Flonase - NS 1 spray DAILY KEN Administration Hydrochlorothiazide 12.5 mg 01/27/18 22:00 01/29/18 09:41 Hctz - PO 12.5 mg BID KEN Administration Montelukast Sodium 5 mg 01/28/18 10:00 01/29/18 09:42 Singulair - PO 5 mg DAILY KEN Administration Ondansetron HCl 4 mg 01/27/18 13:31 Zofran Injection IVPUSH Q6H PRN NAUSEA AND/OR VOMITING Oxycodone HCl 10 mg 01/27/18 13:31 01/27/18 14:08 Roxicodone - PO 10 mg Q6H PRN Administration PAIN LEVEL 7 - 10 Pantoprazole Sodium 40 mg 01/28/18 10:00 01/29/18 09:42 Protonix - PO 40 mg DAILY KEN Administration Tramadol HCl 50 mg 01/27/18 13:31 01/28/18 01:38 Ultram - PO 50 mg Q6H PRN Administration PAIN LEVEL 1-3 Tramadol HCl 100 mg 01/27/18 13:31 01/28/18 17:52 Ultram - PO 100 mg Q6H PRN Administration PAIN LEVEL 4 - 6 Valsartan 160 mg 01/27/18 22:00 01/29/18 09:42 Diovan - PO 160 mg BID KEN Administration ASSESSMENT/PLAN This is a 52 year old man with a history of HTN, hyperlipidemia, asthma, psoriatic arthritis, , anxiety, cervical stenosis with myelopathy who was admitted for C-spine surgery. 1. Cervical stenosis with myelopathy - s/p C3-C4, C4-C5 discectomies; C4 corpectomies; C3, C5 partial corpectomies ; C3-C5 anterior cage reconstruction; C3-C5 anterior instrumented fusion; bone autograft; bone allograft 01/26 --POD #3 --pain well-managed with PO meds --swallow eval done, diet upgraded, tolerated puree,thin liquids, pills 2. HTN - Continued Diovan, HCTZ 3. Hyperlipidemia - Continued Lipitor 4. Asthma - Stable - Continued Symbicort, Singulair 5. Psoriatic arthritis 6. Anxiety - Continued Klonopin
--- NOTE | 2018-01-29 14:39 | PN ---
Progress Note, [employer] - Note Progress Note: Selected Entries 01/28/18 01/28/18 01/28/18 01:39 06:00 10:00 Breakfast Lunch Supper Temperature 99.4 F 100.5 F H 98.2 F 01/28/18 01/28/18 01/28/18 15:23 16:30 18:30 Breakfast 75% Lunch 75% Supper 100% Temperature 98.6 F 97.7 F 01/28/18 01/29/18 01/29/18 20:00 06:00 09:40 Breakfast Lunch Supper Temperature 97.7 F 99.7 F H 98.1 F 01/29/18 12:17 Breakfast 75% Lunch Supper Temperature Laboratory Tests 01/27/18 05:30 WBC 7.5 Pt reports tolerating puree,thin liquids, pills. Pt reports benefitting from chin tuck, effortful swallow, multiple swallow, alternating with liquids. Pt denies coughing or choking. Re-educated pt again on the results of the mbs. Upgrade diet as tolerated, once pt is more confident in his swallowing. Continue Ensure. Follow up with me as out pt, if persistent difficulty is perceived.Prognosis for complete recovery of dysphagia is excellent.
--- NOTE | 2018-01-29 15:37 | DS ---
Physical Exam: SUBJECTIVE: Patient seen and examined. OBJECTIVE: Vital Signs Period Temp Pulse Resp BP Sys/Nettles Pulse Ox Last 24 Hr 97.7 F-99.7 F 82-88 16-20 135-160/91-98 95 PHYSICAL EXAM General/Neuro: A&Ox3, NAD; ambulating, 5/5 motor and 5/5 sensory all extremites , steady gait HEENT: Neck swollen; voice clear, no hoarseness, no drooling; anterior neck surgical dressing c/d/i Lungs: CTA CV: S1, S2, RRR Ext: 2+ pulses, warm, well-perfused LABS CBCD WBC 7.5 K/mm3 (4.0-10.0) 01/27/18 05:30 RBC 3.13 M/mm3 (4.00-5.60) L 01/27/18 05:30 Hgb 10.9 GM/dL (11.7-16.9) L 01/27/18 05:30 Hct 31.5 % (35.4-49) L 01/27/18 05:30 MCV 100.4 fl (80-96) H 01/27/18 05:30 MCHC 34.5 g/dl (32.0-35.9) 01/27/18 05:30 RDW 12.6 % (11.9-15.9) 01/27/18 05:30 Plt Count 158 K/MM3 (134-434) 01/27/18 05:30 MPV 8.7 fl (7.5-11.1) 01/27/18 05:30 CMP Sodium 136 mmol/L (136-145) 01/27/18 05:30 Potassium 4.1 mmol/L (3.5-5.1) 01/27/18 05:30 Chloride 102 mmol/L (98-107) 01/27/18 05:30 Carbon Dioxide 28 mmol/L (21-32) 01/27/18 05:30 Anion Gap 6 MMOL/L (8-16) L 01/27/18 05:30 BUN 21 mg/dL (7-18) H 01/27/18 05:30 Creatinine 1.2 mg/dL (0.55-1.3) 01/27/18 05:30 Creat Clearance w eGFR > 60 (>60) 01/27/18 05:30 Calcium 8.0 mg/dL (8.5-10.1) L 01/27/18 05:30 HOSPITAL COURSE: Date of Admission:01/26/18 Date of Discharge: 01/29/18 This is a 52 year old man with a history of HTN, hyperlipidemia, asthma, psoriatic arthritis, , anxiety, cervical stenosis with myelopathy who was admitted for C-spine surgery. 1. Cervical stenosis with myelopathy - s/p C3-C4, C4-C5 discectomies; C4 corpectomies; C3, C5 partial corpectomies ; C3-C5 anterior cage reconstruction; C3-C5 anterior instrumented fusion; bone autograft; bone allograft 01/26 --POD #3 --pain well-managed with PO meds --swallow eval done, diet upgraded, tolerated puree,thin liquids, pills 2. HTN - Continued Diovan, HCTZ 3. Hyperlipidemia - Continued Lipitor 4. Asthma - Stable - Continued Symbicort, Singulair 5. Psoriatic arthritis 6. Anxiety - Continued Klonopin Minutes to complete discharge: 35 Discharge Summary Reason For Visit: CERVICAL DISC DISORDER Condition: Improved - Instructions Diet, Activity, Other Instructions: You may take tylenol only for pain. Do not take aspirin, motrin, ibuprofen, or any other type of NSAID. You should not lift anything heavier than the weight of your cell phone. No bending. No twisting. Keep your dressing clean and dry. Follow up at [facility] office Friday02/06/2018; call for appointment; . Referrals: Familia Joshua MD [Staff Physician] - Disposition: HOME - Home Medications Comprehensive Discharge Medication List: Ambulatory Orders Albuterol 0.083% Nebulizer Nelda [Ventolin 0.083% Nebulizer Soln -] 1 neb NEB Q8H PRN 01/22/18 Albuterol Sulfate [Proair Hfa] 8.5 gm IH Q4H PRN 01/22/18 Fluticasone Prop 0.05% Nasal [Flonase -] 1 spray NS DAILY 01/22/18 Fluticasone/Salmeterol [Advair 250-50 Diskus] 2 puff PO BID 01/22/18 Montelukast Sodium [Singulair] 5 mg PO DAILY 01/22/18 Pantoprazole Sodium [Protonix] 40 mg PO DAILY 01/22/18 Simvastatin [Zocor -] 10 mg PO HS 01/22/18 Clonazepam 0.5 mg PO DAILY 01/26/18 Irbesartan/Hydrochlorothiazide [Irbesartan-Hctz 300-12.5 mg Tb] 1 each PO DAILY 01/26/18 This patient is new to me today: No Emergency Visit: No Critical Care patient: No - Discharge Referral Referred to [facility] No
--- NOTE | 2018-01-30 14:24 | PATH ---
Surgical Pathology Report Patient Name: JAVON REINOSO [facility]. Rec. #: [id number] /Age/Gender: 1965 (Age: 52) / M Account: [id number] Location: ICU ANIMATION ARTIST Taken: 01/26/2018 Received: 01/26/2018 Reported: 01/27/2018 Physicians: Familia Joshua M.D. Specimen(s) Received C3-4 C4-5 DISC Clinical History Cervical spinal stenosis with myelopathy Final Diagnosis C3-4, C4-5, DISC, DISCECTOMY: FRAGMENTS OF CARTILAGINOUS TISSUE WITH DEGENERATIVE CHANGE. Electronically Signed Phuong Pérez M.D. Gross Description Received in formalin labeled "C3-4, C4-5 disc," is a 2.0 x 1.7 x 0.3 cm aggregate of miller fragments of fibrocartilaginous tissue. The specimen is entirely submitted in one cassette. /01/26/2018 saudi01/26/2018
== END 2018-01-29 15:46 | disposition home or self-care (01) | DRG 472 ==
LOC: JSAMEDAYSX 06:08 → EDSTATUS 08:00 → JICU 15:36 → J8W 01-27 20:54
PROVIDERS: ADMIT Orthopaedic Surgery Orthopaedic Surgery of the Spine; ATTEND Nurse Practitioner Acute Care
PROC: 0RG2070 Fusion of 2 or more Cervical Vertebral Joints with Autologous Tissue Substitute, Anterior Approach, Anterior Column, Open Approach (ICD-10-PCS; 2018-01-26)
PROC: 0RT30ZZ Resection of Cervical Vertebral Disc, Open Approach (ICD-10-PCS; 2018-01-26)
PROC: 0PB30ZZ Excision of Cervical Vertebra, Open Approach (ICD-10-PCS; 2018-01-26)
PROC: 0RG20A0 Fusion of 2 or more Cervical Vertebral Joints with Interbody Fusion Device, Anterior Approach, Anterior Column, Open Approach (ICD-10-PCS; principal; 2018-01-26 08:00)
DX: M50.023 Cervical disc disorder at C6-C7 level with myelopathy (principal); D62 Acute posthemorrhagic anemia; J98.11 Atelectasis; M48.02 Spinal stenosis, cervical region; M40.292 Other kyphosis, cervical region; I10 Essential (primary) hypertension; J45.909 Unspecified asthma, uncomplicated; K21.9 Gastro-esophageal reflux disease without esophagitis; E78.5 Hyperlipidemia, unspecified; L40.50 Arthropathic psoriasis, unspecified; F41.9 Anxiety disorder, unspecified; Z87.891 Personal history of nicotine dependence; R13.13 Dysphagia, pharyngeal phase
CPT/HCPCS: 36415; 71046-TC-FY; 72050-TC-FY; 74230-TC-FY; 80048; 83735; 84100; 85027; 86850; 86900; 86901; 87040; 87086; 88304-TC; 92611-GN; 94640; 94760; 97116-GP; 97161-GP; J0131; J1100; J1644

== ENCOUNTER 2019-03-10 08:40 | Inpatient (IN) | payer OTHER ==
[2019-03-01 11:59] VITALS: BMI 26.2
[2019-03-10] MEDS ORDERED: TRANEXAMIC ACID 1000 MG/10 ML VIAL IVPUSH ONE (09:07)
[2019-03-10] MEDS ORDERED: VANCOMYCIN 1,250 MG in DEXTROSE 5%-WATER - 250 ML IVPB ONE ×2 (09:07→21:00)
[2019-03-10] MEDS ORDERED: BUPIVACAINE LIPOSOME/PF (EXPAREL) 266 MG/20 ML VIAL ONE (09:37)
[2019-03-10] MEDS ORDERED: MIDAZOLAM HCL 2 MG/2 ML SINGLE DOSE VIAL ONE ×6 (09:37→11:43)
[2019-03-10] MEDS ORDERED: SODIUM CHLORIDE 0.9% P/F 10 ML VIAL IJ ONE (09:38)
[2019-03-10] MEDS ORDERED: VANCOMYCIN 1,000 MG VIAL (RESTRICTED TO ID ONLY) ONE (10:19)
[2019-03-10] MEDS ORDERED: DEXMEDETOMIDINE HCL 200 MCG/2 ML IVPB ONE (10:53)
[2019-03-10] MEDS ORDERED: PROPOFOL 20 ML ONE ×3 (10:59→12:05)
[2019-03-10] MEDS ORDERED: SUCCINYLCHOLINE CHLORIDE 200 MG/10 ML SYRINGE ONE (11:00)
--- NOTE | 2019-03-10 13:08 | PN ---
Progress Note (short form) - Note Progress Note: 52M s/p RIGHT total knee replacement POD #0. -Pain control. -DVT PPx: -Chemical: ASA 81mg PO BID x 6 weeks. -Mechanical: JEROME's, SCD's. -Incentive spirometry q15 min. -PT/OT/Rehab, OOB. -WBAT RLE. -Antibiotics: Vancomycin x 1 post op dose. -f/u post-op trial of void (8 hours max). -f/u drain output. -Diet as tolerated. -Keep dressing clean & dry. -Care per medical hospitalist team. -f/u [facility] [place] office Fri03/18/2019; call for appointment; . -Will follow. Familia Joshua MD (Orthopaedic Surgery).
[2019-03-10] MEDS ORDERED: ALBUTEROL SO4 8 GM HFA INHALER IH PRN (13:10)
[2019-03-10] MEDS ORDERED: ALBUTEROL SO4 0.083% IH SOL 2.5 MG/3 ML VIAL.NEB. NEB PRN (13:10)
--- NOTE | 2019-03-10 13:10 | OP ---
Operative Note - Note: Operative Date: 03/10/19 Pre-Operative Diagnosis: Right knee DJD Operation: Right TKA Findings: Synovitis Implants: Pascale Triathlon. Femur - 5. Tibia - 6. Poly - 9mm, PS. Patella - 27mm, symmetric Post-Operative Diagnosis: Same as Pre-op Surgeon: Familia Joshua Delivery Nurse: Hammad Joshua Anesthesiologist/DIRECTOR OF FRONT OFFICE: Jaz Moore Anesthesia: Spinal Specimens Removed: Bone, soft tissue Estimated Blood Loss (mls): 0 Drains & Tubes with Location: 1 x deep HemoVac Fluid Volume Replaced (mls): 1,000 (Crystalloid) Operative Report Dictated: Yes
[2019-03-10] MEDS ORDERED: MAGNESIUM HYDROX 2400MG/30ML ORAL SUSPENSION 30 ML CUP PO PRN (13:13)
[2019-03-10] MEDS ORDERED: ONDANSETRON 4 MG/2 ML VIAL IVPUSH PRN (13:13)
[2019-03-10] MEDS ORDERED: MAG HYDROX/AL HYDROX/SIMETH 30 ML UNIT-DOSE CUP PO PRN (13:13)
[2019-03-10] MEDS ORDERED: GUSELKUMAB SQ SCH (13:15)
[2019-03-10] MEDS ORDERED: LACTATED RINGERS SOLUTION 1,000 ML IV SCH ×2 (13:15→14:15)
--- NOTE | 2019-03-10 14:08 | HP ---
HISTORY OF PRESENT ILLNESS: 53 year-old male with a PMH significant for HTN, HLD, asthma, COPD, GERD, psoriatic arthritis, anxiety, and DJD s/p right total knee arthroplasty earlier today with Dr. Familia Joshua. Recent Travel: No PAST MEDICAL HISTORY: Hypertension Hyperlipidemia COPD Asthma GERD Psoriatic arthritis Degenerative joint disease Anxiety PAST SURGICAL HISTORY: Right knee surgery x 3 Laminectomy Left shoulder arthroscopy Bilateral carpal tunnel release Hemorrhoidectomy Nasal septum surgery C3-C4, C4-C5 discectomies/C4 corpectomies/C3, C5 partial corpectomies/C3-C5 anterior column cage reconstruction/C3-C5 anterior instrumented fusion/Bone autograft Social History: Smoking: current smoker Alcohol: social Drugs: no Family history: father 79 a&w; mother 75 a&w Allergies levofloxacin [From Levaquin] Allergy (Severe, Verified 03/01/19 11:46) Difficulty Breathing Penicillins Allergy (Severe, Verified 03/01/19 11:46) Difficulty Breathing oxycodone Allergy (Mild, Verified 03/01/19 11:46) Itching HOME MEDICATIONS: Home Medications Medication Instructions Recorded Albuterol 0.083% Nebulizer Nelda 1 neb NEB Q8H PRN 01/22/18 [Ventolin 0.083% Nebulizer Soln -] Albuterol Sulfate [Proair Hfa] 8.5 gm IH Q4H PRN 01/22/18 Fluticasone Prop 0.05% Nasal 1 spray NS DAILY 01/22/18 [Flonase -] Fluticasone/Salmeterol [Advair 2 puff PO BID 01/22/18 250-50 Diskus] Montelukast Sodium [Singulair] 5 mg PO DAILY 01/22/18 Pantoprazole Sodium [Protonix] 40 mg PO DAILY 01/22/18 Clonazepam 0.5 mg PO DAILY 01/26/18 Amlodipine Besylate [Norvasc -] 5 mg PO DAILY 03/01/19 Bisoprolol Fumarate 5 mg PO DAILY 03/01/19 Guselkumab [Tremfya] 100 mg SQ ASDIR 03/01/19 Rosuvastatin Calcium [Crestor] 10 mg PO DAILY 03/01/19 REVIEW OF SYSTEMS CONSTITUTIONAL: Absent: fever, chills, diaphoresis, generalized weakness, malaise, loss of appetite, weight change HEENT: Absent: rhinorrhea, nasal congestion, throat pain, throat swelling, difficulty swallowing, mouth swelling, ear pain, eye pain, visual changes CARDIOVASCULAR: Absent: chest pain, syncope, palpitations, irregular heart rate, lightheadedness , peripheral edema RESPIRATORY: Absent: cough, shortness of breath, dyspnea with exertion, orthopnea, wheezing, stridor, hemoptysis GASTROINTESTINAL: Absent: abdominal pain, abdominal distension, nausea, vomiting, diarrhea, constipation, melena, hematochezia GENITOURINARY: Absent: dysuria, frequency, urgency, hesitancy, hematuria, flank pain, genital pain MUSCULOSKELETAL: Absent: myalgia, arthralgia, joint swelling, back pain, neck pain SKIN: Absent: rash, itching, pallor HEMATOLOGIC/IMMUNOLOGIC: Absent: easy bleeding, easy bruising, lymphadenopathy, frequent infections ENDOCRINE: Absent: unexplained weight gain, unexplained weight loss, heat intolerance, cold intolerance NEUROLOGIC: Absent: headache, focal weakness or paresthesias, dizziness, unsteady gait, seizure, mental status changes, bladder or bowel incontinence PSYCHIATRIC: Absent: anxiety, depression, suicidal or homicidal ideation, hallucinations. PHYSICAL EXAMINATION Vital Signs - 24 hr 03/10/19 03/10/19 09:28 13:42 Temperature 98.6 F 97.9 F Pulse Rate 70 65 Respiratory 18 14 Rate Blood Pressure 133/78 137/92 O2 Sat by Pulse 97 Oximetry (%) GENERAL: Sleeping but arousable, follows commands HEAD: Normal with no signs of trauma. LUNGS: Breath sounds equal, clear to auscultation bilaterally. No wheezes, and no crackles. No accessory muscle use. HEART: Regular rate and rhythm, normal S1 and S2 ABDOMEN: Soft, nontender, not distended, normoactive bowel sounds UPPER EXTREMITIES: 2+ pulses, warm, well-perfused. No cyanosis. No clubbing. No peripheral edema. LOWER EXTREMITIES: 2+ pulses, warm, well-perfused. No calf tenderness. No peripheral edema. SCDs, TEDs, ice caridad in place; surgical dressing on RLE c/d/i, Hemovac drain; can slightly move toes on right, not on left NEUROLOGICAL: Cranial nerves II-XII intact. Pre op Hgb 12.5 BUN 25 Cr 1.4 Intra op Vanc x 1g LR 800ccs EBL <100ccs ASSESSMENT/PLAN 53 year-old male with a PMH significant for HTN, HLD, asthma, COPD, GERD, psoriatic arthritis, anxiety, and DJD s/p right total knee arthroplasty earlier today with Dr. Familia Joshua. s/p Right total knee arthroplasty --POD #0 --perioperative antibiotics per surgery --pain management per surgery --ASA 81mg BID --protonix --bowel regimen --incentive spirometry --Hemovac drain, monitor output Hypertension --continue amlodipine, atenolol Hyperlipidemia --continue rosuvastatin Asthma COPD --continue Symbicort, flonase, Singulair GERD --protonix Psoriatic arthritis Anxiety --continue clonazepam FEN Fluids: LR @ 125mL/hr Electrolytes: replete as indicated Nutrition: regular diet DVT prophylaxis: OOB, ambulation, SCDs, TEDs, ASA 81mg BID Physical therapy Dispo: continues to require inpatient care. Full code. Visit type - Emergency Visit Emergency Visit: No - New Patient This patient is new to me today: Yes Date on this admission: 03/10/19 - Critical Care Critical Care patient: No
[2019-03-10] MEDS ORDERED: oxyCODONE HCL 5 MG TABLET PO PRN (14:16)
[2019-03-10] MEDS ORDERED: ACETAMINOPHEN 325 MG TABLET (FP) ONE (14:20)
[2019-03-10] MEDS: ACETAMINOPHEN 325 MG TABLET (FP) PO SCH ×2 (15:40→21:13)
[2019-03-10] MEDS: oxyCODONE HCL 5 MG TABLET PO PRN (17:00)
--- NOTE | 2019-03-10 20:17 | OP ---
DATE OF OPERATION: DATE OF DICTATION: 03/10/2019 SURGEON: Familia Joshua M.D. ULTRASOUND SPECIALIST: Hammad Joshua M.D. PREOPERATIVE DIAGNOSIS: Psoriatic osteoarthritis, right knee. POSTOPERATIVE DIAGNOSIS: Psoriatic osteoarthritis, right knee. OPERATION: Right cemented posterior stabilized total knee arthroplasty (Randolph subvastus approach). ANESTHESIA: Conscious sedation and spinal block with peripheral nerve block. MD JENA Francois/[id number]
[2019-03-10] MEDS ORDERED: diphenhydrAMINE HCL 25 MG CAPSULE (FP) PO PRN (20:21)
[2019-03-10] MEDS: ASPIRIN COATED 81 MG TABLET.EC PO SCH (21:12)
[2019-03-10] MEDS: SENNOSIDES/DOCUSATE COMBO (SENNA PLUS) TABLET (UD) PO SCH (21:14)
[2019-03-10] MEDS: BUDESONIDE/FORMETEROL FUMARATE 80/4.5 mcg INHALER IH SCH (21:37)
[2019-03-10] MEDS ORDERED: oxyCODONE HCL 10 MG SUSTAINED ACTING TABLET PO SCH (22:00)
[2019-03-10] MEDS: KETOROLAC TROMETHAMINE 30 MG/1 ML VIAL IVPUSH PRN (22:10)
[2019-03-11] MEDS: oxyCODONE HCL 5 MG TABLET PO PRN (00:55)
[2019-03-11] MEDS: ACETAMINOPHEN 325 MG TABLET (FP) PO SCH ×4 (02:20→21:04)
[2019-03-11] MEDS: KETOROLAC TROMETHAMINE 30 MG/1 ML VIAL IVPUSH PRN ×3 (04:03→16:00)
--- NOTE | 2019-03-11 07:52 | PN ---
Progress Note (short form) - Note Progress Note: ORTHOPAEDIC SURGERY POD #1 s/p Right total knee arthroplasty No acute events since surgery per RN notes. Was in the chair prior too my arrival this morning. Getting oob to chair with assist. C/o incisional pain. Adequate pain control with medications ordered. Voiding spontaneoulsy. Denies n/v/f/c, CP, palpitations, SOB or QUINN. Last Vital Signs Temp Pulse Resp BP Pulse Ox 98.5 F 79 18 151/95 94 L 03/11/19 06:14 03/11/19 06:14 03/11/19 06:14 03/11/19 06:14 03/11/19 06:14 Hemeovac 03/10/19 03/11/19 03/11/19 22:00 04:08 06:24 Drain 240 240 60 Gen: alert. nad. LE: dressing c/d/i. Drain on suction (sanguinous). SCDs bilat. LE compartments soft, NT bilat. Palpable DP & PT. Dorsi/plantar felxion 5/5 Problem List - Problems (1) Status post total right knee replacement using cement Assessment/Plan: POD #1 s/p Rt TKR GOALS FOR TODAY 1. Pain control 2. DVT PPX --> ASA 81 mg PO BID x 6 weeks; Mechanical via TEDs & SCDs 3. Incentive spirometer 4. OOB with PT 5. WBAT RLE 6. Cont to monitor & record drain output q shift 7. Discharge planning to home 03/12/19 8. Will cont to follow with [facility] Hospitalist through discharge Above plan discussed with Dr. Hammad Joshua and agree Code(s): Z96.651 - PRESENCE OF RIGHT ARTIFICIAL KNEE JOINT (2) Osteoarthritis of right knee Code(s): M17.11 - UNILATERAL PRIMARY OSTEOARTHRITIS, RIGHT KNEE (3) HTN (hypertension) Code(s): I10 - ESSENTIAL (PRIMARY) HYPERTENSION (4) HLD (hyperlipidemia) Code(s): E78.5 - HYPERLIPIDEMIA, UNSPECIFIED (5) COPD (chronic obstructive pulmonary disease) Code(s): J44.9 - CHRONIC OBSTRUCTIVE PULMONARY DISEASE, UNSPECIFIED (6) Anxiety Code(s): F41.9 - ANXIETY DISORDER, UNSPECIFIED
[2019-03-11 08:30] LABS: HEMATOCRIT 30.9 % (35.4-49); HEMOGLOBIN 10.3 GM/dl (11.7-16.9); MCH 36.8 pg (25.7-33.7); MCHC 33.3 g/dl (32.0-35.9); MEAN CELL VOLUME 110.6 fl (80-96); MEAN PLT VOLUME 7.4 fl (7.5-11.1); PLATELET COUNT 180 K/MM3 (134-434); RBC 2.79 M/mm3 (4.00-5.60); RDW 14.2 % (11.9-15.9); WHITE BLOOD COUNT 7.2 K/mm3 (4.0-10.8)
--- NOTE | 2019-03-11 08:38 | PN ---
Physical Exam: SUBJECTIVE: Patient seen and examined at bedside. Pain 10, will give dose of Tylenol. Participated in PT this morning. OBJECTIVE: Vital Signs Period Temp Pulse Resp BP Sys/Nettles Pulse Ox Last 24 Hr 97.4 F-99.1 F 63-82 14-20 104-151/72-95 94-97 GENERAL: A&Ox3 LUNGS: Breath sounds equal, clear to auscultation bilaterally. No wheezes, and no crackles. No accessory muscle use. HEART: Regular rate and rhythm, normal S1 and S2 ABDOMEN: Soft, nontender, not distended, normoactive bowel sounds UPPER EXTREMITIES: 2+ pulses, warm, well-perfused. No cyanosis. No clubbing. No peripheral edema. LOWER EXTREMITIES: 2+ pulses, warm, well-perfused. No calf tenderness. No peripheral edema. SCDs, TEDs, surgical dressing on RLE c/d/i, Hemovac drain Laboratory Results - last 24 hr 03/10/19 03/10/19 03/11/19 10:25 10:25 08:25 WBC 7.2 RBC 2.79 L Hgb 10.3 L Hct 30.9 L MCV 110.6 H MCH 36.8 H MCHC 33.3 RDW 14.2 Plt Count 180 MPV 7.4 L Hep C Ab Diagnostic 0.1 HIV 1&2 Antibody Screen Negative HIV P24 Antigen Negative Active Medications Generic Name Dose Route Start Last Admin Trade Name Freq PRN Reason Stop Dose Admin Acetaminophen 650 mg 03/10/19 15:00 03/11/19 02:20 Tylenol - PO 03/13/19 14:59 650 mg Q6H KEN Administration Al Hydroxide/Mg Hydroxide 30 ml 03/10/19 13:13 Mylanta Oral Suspension - PO Q4H PRN DYSPEPSIA Albuterol Sulfate 1 amp 03/10/19 13:10 Ventolin 0.083% Nebulizer Soln - NEB Q8H PRN ASTHMA Albuterol Sulfate 2 puff 03/10/19 13:10 Ventolin Hfa Inhaler - IH Q4H PRN ASTHMA Amlodipine Besylate 5 mg 03/11/19 10:00 Norvasc - PO DAILY KEN Aspirin 81 mg 03/10/19 22:00 03/10/19 21:12 Ecotrin - PO 81 mg BID KEN Administration Atenolol 50 mg 03/11/19 10:00 Tenormin - PO DAILY KEN Budesonide/Formoterol Fumarate 2 puff 03/10/19 22:00 03/10/19 21:37 Symbicort 80/4.5mcg - IH 2 puff BID KEN Administration Clonazepam 0.5 mg 03/11/19 10:00 Klonopin - PO DAILY KEN Fluticasone Propionate 1 spray 03/11/19 10:00 Flonase - NS DAILY COUNTS INCLUDE 234 BEDS AT THE [facility] Ketorolac Tromethamine 30 mg 03/10/19 20:19 03/11/19 04:03 Toradol Injection - IVPUSH 03/15/19 20:18 30 mg Q6H PRN Administration PAIN LEVEL 1-5 Magnesium Hydroxide 30 ml 03/10/19 13:13 Milk Of Magnesia - PO PRN PRN CONSTIPATION Montelukast Sodium 5 mg 03/11/19 22:00 Singulair - PO HS KEN Non-Formulary Medication 100 mg 03/10/19 13:15 Guselkumab [Tremfya] SQ ASDIR KEN Ondansetron HCl 4 mg 03/10/19 13:13 03/11/19 07:15 Zofran Injection IVPUSH 4 mg Q6H PRN Administration NAUSEA Oxycodone HCl 5 mg 03/10/19 14:16 Roxicodone - PO Q3H PRN PAIN LEVEL 1-5 Oxycodone HCl 10 mg 03/10/19 14:16 03/11/19 00:55 Roxicodone - PO 10 mg Q3H PRN Administration PAIN LEVEL 6-10 Pantoprazole Sodium 40 mg 03/11/19 10:00 Protonix - PO DAILY COUNTS INCLUDE 234 BEDS AT THE [facility] Rosuvastatin Calcium 10 mg 03/11/19 10:00 Crestor - PO DAILY COUNTS INCLUDE 234 BEDS AT THE [facility] Senna/Docusate Sodium 2 tablet 03/10/19 22:00 03/10/19 21:14 Pericolace - PO 2 tablet BID KEN Administration Pre op Hgb 12.5 BUN 25 Cr 1.4 Intra op Vanc x 1g LR 800ccs EBL <100ccs ASSESSMENT/PLAN 53 year-old male with a PMH significant for HTN, HLD, asthma, COPD, GERD, psoriatic arthritis, anxiety, and DJD s/p right total knee arthroplasty earlier today with Dr. Familia Joshua. s/p Right total knee arthroplasty --POD #1 --perioperative antibiotics per surgery --pain management per surgery; added ketorolac max 4 doses --ASA 81mg BID --protonix --bowel regimen --incentive spirometry --Hemovac drain, monitor output Hypertension --continue amlodipine, atenolol Hyperlipidemia --continue rosuvastatin Asthma COPD --continue Symbicort, flonase, Singulair GERD --protonix Psoriatic arthritis Anxiety --continue clonazepam FEN Fluids: PO intake adequate Electrolytes: replete as indicated Nutrition: regular diet DVT prophylaxis: OOB, ambulation, SCDs, TEDs, ASA 81mg BID Physical therapy Dispo: continues to require inpatient care. Full code. Visit type - Emergency Visit Emergency Visit: No - New Patient This patient is new to me today: No - Critical Care Critical Care patient: No
[2019-03-11 08:59] LABS: CALCIUM 8.5 mg/dl (8.5-10); CREATININE 1.2 mg/dl (0.55-1.3); MAGNESIUM 1.4 mg/dL (1.8-2.4); POTASSIUM 3.9 mmol/L (3.5-5.1)
[2019-03-11] MEDS ORDERED: MAGNESIUM SULF 50% (8.12 MEQ/2 ML-1 GM VIAL) IVPB ONE (09:11)
[2019-03-11] MEDS: ROSUVASTATIN CA 10 MG TABLET (FP) PO SCH (09:30)
[2019-03-11] MEDS ORDERED: MAGNESIUM SULFATE IN WATER 2 GM/50 ML IVPB IVPB ONE (09:30)
[2019-03-11] MEDS: ASPIRIN COATED 81 MG TABLET.EC PO SCH ×2 (09:30→21:04)
[2019-03-11] MEDS: amLODIPine BESYLATE 5 MG TABLET (FP) PO SCH (09:31)
[2019-03-11] MEDS: clonazePAM 0.5 MG TABLET PO SCH (09:31)
[2019-03-11] MEDS: PANTOPRAZOLE 40 MG TABLET (FP) PO SCH (09:31)
[2019-03-11] MEDS: ATENOLOL 50 MG TABLET (FP) PO SCH (09:31)
[2019-03-11] MEDS: SENNOSIDES/DOCUSATE COMBO (SENNA PLUS) TABLET (UD) PO SCH ×2 (09:31→21:04)
[2019-03-11] MEDS ORDERED: PT OWN MED DRAWER 7, Y5N ONE ×2 (09:36→20:59)
[2019-03-11] MEDS ORDERED: PATIENT'S OWN MEDICATION (NON-FORMULARY) (Bisoprolol Fumarate [Bisoprolol Fumarate] 5 MG) PO SCH (10:00)
[2019-03-11] MEDS ORDERED: PATIENT'S OWN MEDICATION (NON-FORMULARY) (Clonazepam [Clonazepam] 0.5 MG) PO SCH (10:00)
[2019-03-11] MEDS ORDERED: PANTOPRAZOLE 40 MG TABLET (FP) PO SCH (10:00)
[2019-03-11] MEDS: BUDESONIDE/FORMETEROL FUMARATE 80/4.5 mcg INHALER IH SCH ×2 (10:30→21:06)
[2019-03-11] MEDS: FLUTICASONE PROP 0.05% 16 GM NASAL SPRAY NS SCH (10:30)
--- NOTE | 2019-03-11 12:17 | PN ---
Progress Note (short form) - Note Progress Note: 53M POD1 s/p R TKR under spinal anesthetic with peripheral nerve blocks for post operative pain relief. Pt states that pain is well controlled and denies any anesthetic complications. AVSS. Continue current regimen.
[2019-03-11] MEDS ORDERED: ACETAMINOPHEN 325 MG TABLET (FP) PO ONE (13:45)
[2019-03-11 21:03] VITALS: BP 124/69; PULSE 82; TEMP 98.5
[2019-03-11] MEDS ORDERED: MONTELUKAST NA 5 MG TAB.CHEW PO SCH (22:00)
[2019-03-11] MEDS ORDERED: KETOROLAC TROMETHAMINE 30 MG/1 ML VIAL IVPUSH ONE (22:00)
[2019-03-12] MEDS: ACETAMINOPHEN 325 MG TABLET (FP) PO SCH ×2 (03:27→09:46)
--- NOTE | 2019-03-12 07:16 | PN ---
Progress Note (short form) - Note Progress Note: ORTHOPAEDIC SURGERY POD #2 s/p Right total knee arthroplasty No acute events since surgery per RN notes. Currently OOB to chair at bedside with legs elevates, towel roll under heels, ice pack in place. OOB and ambulating with PT (note reviewed) Adequate pain control with medications ordered. Voiding spontaneoulsy. Denies n/v/f/c, CP, palpitations, SOB or QUINN. Last Vital Signs Temp Pulse Resp BP Pulse Ox 98.5 F 82 18 124/69 94 L 03/11/ 21:01 03/11/19 21:01 03/11/19 21:01 03/11/19 21:01 03/12/19 06:20 Gen: alert. nad. LE: dressing c/d/i. Drain dc'd while on rounds. SCDs bilat. LE compartments soft , NT bilat. Palpable DP & PT. Knee felxion to 90 degrees. Dorsi/plantar felxion 5/5 Problem List - Problems (1) Status post total right knee replacement using cement Assessment/Plan: POD #2 s/p Rt TKR GOALS FOR TODAY 1. Pain control 2. DVT PPX --> ASA 81 mg PO BID x 6 weeks; Mechanical via TEDs & SCDs 3. Incentive spirometer 4. Cont OOB with PT 5. WBAT RLE 6. Discharge home today after PT 7. DC instructions outlined in detail under DC PLAN tab. Above plan discussed with Dr. Hammad Joshua and agree Code(s): Z96.651 - PRESENCE OF RIGHT ARTIFICIAL KNEE JOINT (2) Osteoarthritis of right knee Code(s): M17.11 - UNILATERAL PRIMARY OSTEOARTHRITIS, RIGHT KNEE (3) HTN (hypertension) Code(s): I10 - ESSENTIAL (PRIMARY) HYPERTENSION (4) HLD (hyperlipidemia) Code(s): E78.5 - HYPERLIPIDEMIA, UNSPECIFIED (5) COPD (chronic obstructive pulmonary disease) Code(s): J44.9 - CHRONIC OBSTRUCTIVE PULMONARY DISEASE, UNSPECIFIED (6) Anxiety Code(s): F41.9 - ANXIETY DISORDER, UNSPECIFIED
[2019-03-12 07:52] LABS: HEMATOCRIT 27.7 % (35.4-49); HEMOGLOBIN 9.6 GM/dl (11.7-16.9); MCH 37.5 pg (25.7-33.7); MCHC 34.8 g/dl (32.0-35.9); MEAN PLT VOLUME 9.1 fl (7.5-11.1); PLATELET COUNT 150 K/MM3 (134-434); RBC 2.57 M/mm3 (4.00-5.60); RDW 13.6 % (11.9-15.9); WHITE BLOOD COUNT 8.6 K/mm3 (4.0-10.8)
--- NOTE | 2019-03-12 08:48 | DS ---
"Physical Exam: SUBJECTIVE: Patient seen and examined OBJECTIVE: Vital Signs Period Temp Pulse Resp BP Sys/Nettles Pulse Ox Last 24 Hr 98.1 F-99.1 F 81-83 16-18 124-146/65-85 94-95 PHYSICAL EXAM GENERAL: The patient is awake, alert, and fully oriented, in no acute distress. HEAD: Normal with no signs of trauma. EYES: PERRL, extraocular movements intact, sclera anicteric, conjunctiva clear. ENT: Ears normal, nares patent, oropharynx clear without exudates, moist mucous membranes. NECK: Trachea midline, full range of motion, supple. LUNGS: Breath sounds equal, clear to auscultation bilaterally, no wheezes, no crackles, no accessory muscle use. HEART: Regular rate and rhythm, S1, S2 without murmur, rub or gallop. ABDOMEN: Soft, nontender, nondistended, normoactive bowel sounds, no guarding, no rebound, no hepatosplenomegaly, no masses. EXTREMITIES: 2+ pulses, warm, well-perfused, no edema. NEUROLOGICAL: Cranial nerves II through XII grossly intact. Normal speech, gait not observed. PSYCH: Normal mood, normal affect. SKIN: Warm, dry, normal turgor, no rashes or lesions noted. LABS Laboratory Results - last 24 hr 03/11/19 03/12/19 08:25 06:50 WBC 8.6 RBC 2.57 L Hgb 9.6 L Hct 27.7 L MCV 108.0 H MCH 37.5 H MCHC 34.8 RDW 13.6 Plt Count 150 MPV 9.1 D Sodium 135 L Potassium 3.9 Chloride 101 Carbon Dioxide 26 Anion Gap 8 BUN 17.0 Creatinine 1.2 Est GFR (CKD-EPI)AfAm 78.43 Est GFR (CKD-EPI)NonAf 67.67 Random Glucose 128 H Calcium 8.5 Magnesium 1.4 L HOSPITAL COURSE: Date of Admission:03/10/19 Date of Discharge: 03/12/19 This report was requested by: Luci Sanchez | Reference #: [id number] Others' Prescriptions Patient Name: Shukri Amezcua Date: 1965 Address: [address] [place] [address] Sex: Male Rx Written Rx Dispensed Drug Quantity Days Supply Prescriber Name 02/10/2019 02/22/2019 clonazepam 0.5 mg tablet 60 30 Juni Yi MD 02/03/2019 02/03/2019 clonazepam 0.5 mg tablet 30 15 Juni Yi MD 11/17/2018 11/25/2018 clonazepam 0.5 mg tablet 60 30 Denise Maurice 09/15/2018 09/16/2018 clonazepam 0.5 mg tablet 60 30 Dona Ro MD 07/31/2018 08/02/2018 clonazepam 0.5 mg tablet 60 30 Dona Ro MD 07/16/2018 07/21/2018 oxycodone-acetaminophen 10-325 mg tab 60 30 Familia Joshua MS, MD 06/25/2018 06/25/2018 clonazepam 0.5 mg tablet 60 30 Dorothea Franks MD 06/05/2018 06/05/2018 oxycodone-acetaminophen 5-325 mg tablet 90 30 Familia Joshua MS, MD 05/27/2018 05/27/2018 clonazepam 0.5 mg tablet 60 30 Dona Ro MD 04/22/2018 04/22/2018 clonazepam 0.5 mg tablet 60 30 Dona Ro MD 03/20/2018 03/22/2018 oxycodone-acetaminophen 5-325 mg tablet 90 30 Familia Joshua MS, MD Discharge Summary Reason For Visit: RIGHT KNEE OSTEOARTHRITIS Current Active Problems Anxiety (Acute) COPD (chronic obstructive pulmonary disease) (Acute) HLD (hyperlipidemia) (Acute) HTN (hypertension) (Acute) Osteoarthritis of right knee (Acute) Status post total right knee replacement using cement (Acute) Condition: Improved - Instructions Diet, Activity, Other Instructions: Dr. Joshua Discharge Instructions for Knee Replacement Post Operative Instructions Physical activity Physical Therapist will come to your home for the first 5 days. You will be set up with outpatient PT at your first post-operative visit. Use assistive devices for ambulation at all times. Weight bearing as tolerated on your surgical side. Do not put pillow under knee. May put pillow under heel. Wound care Leave your surgical dressing in place. Do not change the dressing until seen by your surgeon in the office. No baths or showers. Do not submerge your incision. Do not apply any ointments or lotions to your incision. Please call the office if your dressing is soiled/dirty or is falling off. Apply Graduated Compression Stockings (TEDS) to both lower extremities - remove daily for hygiene ONLY. Diet There are no dietary restrictions. Eat healthy, high-fiber foods. Drink 6 to 8 glasses of liquid each day. This will assist in keeping your bowels are regular. Pain management Any pain prescription medication ordered should be taken as prescribed for moderate to severe pain. Do not take additional Tylenol while taking Percocet. Take Aspirin 81 mg two times a day for a total of 6 weeks to prevent blood clots. Call Dr. Joshua for any of the following: Severe pain not relieved by medication Fever of 101 or higher Excessive bleeding or drainage on dressing Inability to urinate If you experience chest pain or shortness of breath, please seek emergency care immediately. Please call the office at to confirm your post-op appointment for the week following surgery. iSTOP: This report was requested by: Juni Gale | Reference #: [id number] 02/22/2019 Clonazepam 0.5 mg /60 tablets (30 day supply) by Juni Yi MD Referrals: Familia Joshua MD [Staff Physician] - Disposition: HOME - Home Medications Comprehensive Discharge Medication List: Ambulatory Orders Albuterol 0.083% Nebulizer Nelda [Ventolin 0.083% Nebulizer Soln -] 1 neb NEB Q8H PRN 01/22/18 Albuterol Sulfate [Proair Hfa] 8.5 gm IH Q4H PRN 01/22/18 Fluticasone Prop 0.05% Nasal [Flonase -] 1 spray NS DAILY 01/22/18 Fluticasone/Salmeterol [Advair 250-50 Diskus] 2 puff PO BID 01/22/18 Montelukast Sodium [Singulair] 5 mg PO DAILY 01/22/18 Pantoprazole Sodium [Protonix] 40 mg PO DAILY 01/22/18 Clonazepam 0.5 mg PO DAILY 01/26/18 Amlodipine Besylate [Norvasc -] 5 mg PO DAILY 03/01/19 Bisoprolol Fumarate 5 mg PO DAILY 03/01/19 Guselkumab [Tremfya] 100 mg SQ ASDIR 03/01/19 Rosuvastatin Calcium [Crestor] 10 mg PO DAILY 03/01/19"
[2019-03-12] MEDS: clonazePAM 0.5 MG TABLET PO SCH (09:45)
[2019-03-12] MEDS: ATENOLOL 50 MG TABLET (FP) PO SCH (09:45)
[2019-03-12] MEDS: amLODIPine BESYLATE 5 MG TABLET (FP) PO SCH (09:45)
[2019-03-12] MEDS: ROSUVASTATIN CA 10 MG TABLET (FP) PO SCH (09:46)
[2019-03-12] MEDS: SENNOSIDES/DOCUSATE COMBO (SENNA PLUS) TABLET (UD) PO SCH (09:46)
[2019-03-12] MEDS: ASPIRIN COATED 81 MG TABLET.EC PO SCH (09:46)
[2019-03-12] MEDS: PANTOPRAZOLE 40 MG TABLET (FP) PO SCH (09:46)
[2019-03-12] MEDS: BUDESONIDE/FORMETEROL FUMARATE 80/4.5 mcg INHALER IH SCH (09:53)
[2019-03-12] MEDS: FLUTICASONE PROP 0.05% 16 GM NASAL SPRAY NS SCH (09:53)
[2019-03-12] MEDS ORDERED: PT OWN MED DRAWER 7, Y5N ONE (09:53)
--- NOTE | 2019-03-12 15:12 | PATH ---
Surgical Pathology Report Patient Name: JAVON REINOSO Med. Rec. #: [id number] /Age/Gender: 1965 (Age: 53) / M Account: [id number] [facility] Taken: 03/10/2019 Received: 03/10/2019 Reported: 03/12/2019 Physicians: Familia Joshua M.D. Specimen(s) Received BONES RIGHT KNEE Clinical History Right knee osteoarthritis Final Diagnosis BONES, RIGHT KNEE, TOTAL KNEE REPLACEMENT: DEGENERATIVE JOINT DISEASE. Electronically Signed Valerie De Los Santos M.D. Gross Description Received in formalin labeled "bones right knee," is an 11.5 x 10.0 x 1.5 cm aggregate of multiple portions of bone. The tibial plateau measures 7.4 x 5.5 x 1.5 cm. There are no areas of eburnation identified. The articular surfaces are miller and focally granular. The underlying trabecular bone is yellow and hard. A termite control service representative section is submitted in one cassette, following decalcification. 03/11/2019 [facility]03/11/2019
== END 2019-03-12 12:52 | disposition home or self-care (01) | DRG 470 ==
LOC: FM/S 08:40
PROVIDERS: ADMIT Internal Medicine; ATTEND Nurse Practitioner Acute Care
PROC: 0SRC0J9 Replacement of Right Knee Joint with Synthetic Substitute, Cemented, Open Approach (ICD-10-PCS; principal; 2019-03-10 11:37)
DX: M17.11 Unilateral primary osteoarthritis, right knee (principal); I10 Essential (primary) hypertension; E78.5 Hyperlipidemia, unspecified; J45.909 Unspecified asthma, uncomplicated; K21.9 Gastro-esophageal reflux disease without esophagitis; F41.9 Anxiety disorder, unspecified; J44.9 Chronic obstructive pulmonary disease, unspecified; L40.50 Arthropathic psoriasis, unspecified
CPT/HCPCS: 36415; 73560-TC-RT-FY; 80048; 83735; 85027; 86803; 87389; 88304-TC; 88311-TC; 94760; 97116-GP; 97163-GP